=== PATIENT | male | born 1950 | race Caucasian/White ===

== ENCOUNTER 2024-11-27 05:14 | Inpatient (IN) | payer OTHER, SELFPAY ==
[2024-11-27] VITALS (50 sets, daily range): BP systolic 78–135; BP diastolic 49–102; BMI 23.2; BMI 23.0
[2024-11-27 02:46] LABS: Hematocrit 29.6 % (39.0-52.0); Hemoglobin 9.6 g/dL (13.0-18.0); Mean Corp Hgb Conc. 32.4 g/dL (33.0-37.0); Mean Corpuscular Volume 83.1 fL (80.0-94.0); Nucleated Red Blood Cells % 0 % (-); Platelet Count 448 10^3/uL (130-400); Red Cell Dist. Width 14.6 % (11.5-14.5)
[2024-11-27] MEDS: PROTONIX 100 IV ×2 (02:51→13:55)
[2024-11-27] MEDS: PROTONIX IV 80 MG IV (02:52)
[2024-11-27] MEDS: NSS 500 IV (02:52)
--- NOTE | 2024-11-27 02:55 | ED.GENMED ---
History of Present Illness
General
Chief Complaint: Abdominal Symptoms
Source: patient and ambulance crew
Exam Limitations: none
Time Seen by Provider: 11/27/24 01:54
Nursing documentation reviewed up to this point in time: agreed with
History of Present Illness
History of Present Illness:
Patient presents to ED secondary to 1 week history of intermittent abdominal cramping sensation, associated with persistent nausea, vomiting, and diarrhea over the past 24 hours. Upon arrival in ED, patient is found to be covered with bloody stool
content. Denies fever or chills. Denies trauma. Denies recent change in medications or diet. Denies recent travel. Denies sick contact. Patient lives at home alone, and states that he has not seen any physician for some time due to financial
concerns. Patient has been taking Pepto-Bismol for cramping sensation with minimal relief of symptoms. Secondary to his aforementioned symptoms, patient has not been able to eat anything for the past 48 hours. Patient reports feeling weak and
tired.
Review of Systems
Review of Systems
Allergies reviewed?: Yes
All Other Systems: ROS reviewed and negative except as documented in HPI and ROS
Constitutional: Reports no symptoms; Denies fever
Respiratory: Reports no symptoms
Cardiac: Reports no symptoms
ABD/GI: Reports abdominal pain, nausea, vomiting and diarrhea
Musculoskeletal: Reports no symptoms
Skin: Reports no symptoms
Neurological: Reports weakness; Denies dizzy or headache
Phy Exam
Physical Exam
Physical Exam:
Physical Exam
General: mild distress, acutely ill. afebrile. tachycardic
Head: nc/at. eomi
Neck: supple. no meningeal signs.
Heart: tachycardic. no murmur
Lungs: no acute respiratory distress. clear bilaterally
Abdomen: normal bowel sounds. mild diffuse tenderness to palpation. bloody stool, grossly heme positive
Neuro: alert and oriented x 3. no focal neurological deficits
Skin: no rash
Psychiatric: well kept. interactive and cooperative
Extremities: no edema. no calf tenderness.
Course
Orders/Labs/Results
Orders:
Orders
11/27/24 02:33
Type+Screen Urgent
Complete Blood Count/With Diff Urgent
Comprehensive Metabolic Panel Urgent
Lipase Urgent
11/27/24 02:46
0.9% Sodium Chloride 500 ml [Nss] 500 ml IV BOLUS
Pantoprazole 80 mg/100 ml Nss [Protonix] 80 mg in 100 ml IV NOW
Pantoprazole [Protonix IV] 80 mg IV NOW STA
11/27/24 02:53
ABO2 Urgent
BBK Wristband Number:
Associate notified that ABO2 has been ordered: [id number]
Date: 11/27/24
Time: 02:45
Furnace Erector ID: [id number]
11/27/24 03:09
CT Abd/pel Without Iv Or Oral Urgent
Comment:
Reason For Exam: abd pain w diarrhea
11/27/24 03:46
Electrocardiogram (*1) Urgent
Reason for Study: QTc Monitoring
EKG- Treatment ONCE
Ondansetron Injectable [Zofran] 4 mg IV NOW STA
11/27/24 04:33
IV Insert/Care/Rem.- Treatment PRN
11/27/24 04:36
PTT Urgent
Prothrombin Time Urgent
11/27/24 04:59
Admit/Transfer Patient As Directed
Co-Sign Provider:
Level of Care: Inpatient admission
Assign to:: ICU
Physician / Group: Alex
Diagnosis: GI Bleed, NEETA, Metabolic Acidosis
Reason for Hospitalization: GI Bleed, NEETA, Metabolic Acidosis
Expected length of stay greater than two midnights?: Yes
ELOS- Estimated Length of Stay in days: 4
I certify the patient meets the requirements for IP care: Yes
PRN Pain Medication Management As Directed
May give lesser potent ordered pain med per pt: Yes
preference::
Protocol:: Medication orders for pain may be administered in a
manner that supports deferring to patient preference
when the pt is:
- Requesting an ordered lesser potent pain medication.
Least to most potent pain medications are defined
as: acetaminophen < NSAID < tramadol < opioids
(morphine, oxycodone, hydromorphone).
- Requesting a lesser dose of the same medication IF
ORDERED.
- Requesting a less intrusive route of administration
if both routes are prescribed by the provider (PO <
IV).
11/27/24 05:00
Code Status As Directed
Resuscitation Status: Full Code
11/27/24 05:29
B-Hydroxybutyrate Urgent
Lactic Acid Urgent
11/27/24 Breakfast
NPO
Allow oral meds: Yes
Allow clear liquids: Sips of Clears
11/27/24 06:40
Sterile Water For Inj [Sterile Water For Injection 1000 ml] 1,000 ml Sodium Bicarbonate 150 meq IV 150 mls/hr
11/27/24 06:40
Blood Bank Products [* Blood Bank Products] Urgent
Dr's Orders: Transfuse 1 unit PRBCs now
Blood Bank Products: *Packed RBC Leuko(PRBC's)
Quantity: 1
Transfuse Today: Yes
Reason: Bleeding
Consult Notification Routine
Specialty to Notify: Diazo Technician
Date consulting provider notified: 11/27/24
Time consulting provider notified: 08:54
Notified:: Provider
GASTROINTESTINAL CONSULT Routine
Consulting Provider: Stuart Matias
Was physician already notified: Yes
Reason for consult: GI Bleed
Diazo Technician Consult Routine
Consulting Provider: Alex Hoyt
Was physician already notified: No
Reason for consult: GI Bleed
Activity As Directed
Activity Level: Bedrest
Bladder Scan As Directed
Follow Bladder Retention/Intermittent Cath Algorithm?: Yes
PRN if no void in __ hours: 6
Frequency: Per Retention Algorithm
If Bladder Scan Result >: 400
then:: Straight cath
EKG with chest pain [ECG as needed] As Directed
ECG as needed for:: Chest Pain
I/O [Intake/ Output] As Directed
Frequency: Per unit guidelines
Pneumatic Compression Sleeves As Directed
Type: Knee high
Precautions As Directed
Type of Precautions: Aspiration
Straight Cath As Directed
Frequency: Per Retention Algorithm
Additional Instructions: straight cath as needed per acute urinary retention algorithm for 24 hrs
Additional Instructions: for bladder scan greater than 400 mL
Vital Signs As Directed
Frequency: Per unit guidelines
Weight As Directed
Frequency: Daily
Oxygen Therapy [O2 Therapy] [RESP] Routine
Titrate/Wean O2 to maintain O2 sat greater than (%): 94
DX Deep Vein Thrombosis Video Routine
11/27/24 11:37
TSH Reflex To Free T4 Routine
11/27/24 12:00
Pantoprazole 80 mg/100 ml Nss [Protonix] 80 mg in 100 ml IV Q10H
11/27/24 19:34
HH [H&H] Q6H
11/28/24 06:00
Basic Metabolic Panel IN AM
Complete Blood Count/No Diff IN AM
Magnesium IN AM
Phosphorus IN AM
Abnormal Lab Results
11/27/24 11/27/24
02:33 04:36
WBC 20.0 H 10^3/uL
(4.8-10.8)
RBC 3.56 L 10^6/uL
(4.70-6.10)
Hgb 9.6 L g/dL
(13.0-18.0)
Hct 29.6 L %
(39.0-52.0)
MCHC 32.4 L g/dL
(33.0-37.0)
RDW 14.6 H %
(11.5-14.5)
Plt Count 448 H 10^3/uL
(130-400)
Abs Immat Gran (auto) 0.1 H 10^3/uL
(0-0.05)
Absolute Neuts (auto) 16.6 H 10^3/uL
(1.4-6.5)
Absolute Monos (auto) 0.9 H 10^3/uL
(0.1-0.6)
Immature Gran % 0.7 H %
(0-0.5)
Neutrophils % 83.0 H %
(42.2-75.2)
Lymphocytes % 11.7 L %
(20.5-51.1)
PT 15.4 H Sec
(11.4-14.6)
Potassium 5.2 H mmol/L
(3.5-5.1)
Carbon Dioxide 11 L* mmol/L
(22-30)
BUN 66 H mg/dl
(9-20)
Creatinine 1.8 H mg/dL
(0.7-1.3)
Glucose 253 H mg/dl
(70-99)
Crossmatch IS Only See Detail
11/27/24 02:33
11/27/24 02:33
Vital Signs
Initial and Last Documented VS:
Initial Vital Signs
Pulse Resp
116 29
11/27/24 02:25 11/27/24 02:25
Last Documented Vital Signs
Temp Pulse Resp BP Pulse Ox
98.8 F 108 11 92/56 94
11/27/24 19:20 11/27/24 18:30 11/27/24 18:30 11/27/24 18:24 11/27/24 19:45
MDM/Problems Addressed
MDM/Problems Addressed:
History and exam consistent with GI bleed. In light of acute renal failure, unable to obtain CT angiogram. CT abdomen pelvis without contrast ordered, secondary to diffuse abdominal comfort, to evaluate for potential etiology, i.e. colitis.
Discussed with on-call GI physician, Dr. Matias, via text. Does not recommend octreotide infusion at this time. However, does recommend obtaining bleeding scan, if possible. Patient started on Protonix infusion at this time.
While obtaining CT scan, patient with an episode of coffee-ground emesis, up to small amount. Patient given Zofran upon return to ED without any further vomiting episodes. Although mildly tachycardic, blood pressure remained stable, with normal
mentation.
Blood transfusion consent on the chart.
Critical care statement: A total of 40 minutes of critical care time was provided for this patient. This includes management of unstable vital signs, evaluation of the patient at bedside, reviewing the patient's pertinent medical records, discussion
with consultants, review of old EKGs and review of pertinent medical records. This time with separate from time utilized to perform the aforementioned documented procedures
*Pulse Oximetry
SaO2: 98
Oxygen Mode of Delivery: Room air
Patient hypoxic: no
*EKG
Interpreted by ED Provider?: Yes
EKG Intrepretation Date: 11/27/24
Heart Rate: 117
Rate: tachycardiac
Rhythm: sinus and PVC's
Commercial Point: normal axis
Interval: normal interval
*Critical Care Note
Total Time (30-74mins, 75-104mins- exclusive of procedures): Not Applicable
ED Attending Note
-
Portions of this chart may have been created with voice recognition software.� Occasional wrong word or��sound alike� substitutions may have occurred due to the inherent limitations of voice recognition software.
Discharge Plan
Departure
Patient Disposition: Admit
Date of Disposition: 11/27/24
Time of Disposition: 04:27
Presentation/result/management discussed w/ accepting MD/DO: Hospitalist
Discharge Problem:
GI bleed
Interventions
Interventions:
*Risk Screen - Suicide Last Done: 11/27/24 06:50
*General Assessment Last Done: 11/27/24 01:59
*Neglect/Abuse Screening Last Done: 11/27/24 01:59
*ED- Fall Risk Assessment Last Done: 11/27/24 01:59
*ED COVID-19 Vaccine History Last Done: 11/27/24 06:50
*Nursing Disposition Last Done: 11/27/24 06:37
VZ-Wttvnv-Etcdjksloq Assessment Last Done: 11/27/24 04:29
Discharge Date and Time
Discharge Date/Time: 11/27/24 06:37
[2024-11-27 03:07] LABS: AST (SGOT) 28 U/L (17-59); Albumin 3.8 g/dl (3.5-5.0); Alkaline Phosphatase 51 U/L (38-126); Blood Urea Nitrogen 66 mg/dl (9-20); Calcium 9.9 mg/dl (8.4-10.2); Carbon Dioxide 11 mmol/L (22-30); Chloride 107 mmol/L (98-107); Glucose 253 mg/dl (70-99); Lipase 93 U/L (23-300); Potassium 5.2 mmol/L (3.5-5.1); Sodium 139 mmol/L (135-145); Total Protein 6.5 g/dl (6.3-8.2); eGFR 38.53
[2024-11-27 03:12] LABS: ALT (SGPT) < 30 U/L (0-50)
[2024-11-27] MEDS: ZOFRAN 4 MG IV (04:11)
[2024-11-27 04:59] LABS: INR 1.16; PT 15.4 Sec (11.4-14.6)
[2024-11-27 05:00] LABS: APTT 23.5 Sec (23.4-35.0)
--- NOTE | 2024-11-27 05:04 | HPS.HSE ---
Family Physician
-
Family Physician: * NONE
Chief Complaint
-
N/V/D
History of Present Illness
Patient is a 74y M with PMH significant for GERD / PUD who presents to ED complaining of crampy abdominal pain with N/V/D. Patient states that he has been having crampy abdominal pain of-and-on for several days. He initially attributed this to
the heat and humidity. He was taking medications at home including Pepto Bismol, Imodium, Tylenol and Aleve in an attempt to improve his symptoms. On Friday, patient had campy abdominal pain followed by N/V. He had multiple episodes of emesis
throughout the day - typically triggered by sips of water. He notes that each episode of emesis was typically followed by a large, pudding-consistency bowel movement. His symptoms increased in frequency and severity and he presented to the ED for
further evaluation. He has had multiple additional episodes of coffee-ground emesis and grossly bloody stools since arrival in the ED.
Patient states that he has had previous episodes of 'bleeding ulcers' in the past - usually associated with excess Excedrin use.
He has avoided Excedrin since and now take Tylenol mostly for pain. He does report occasional doses of Aleve if the Tylenol does not work - but not regularly.
He denies smoking or alcohol use.
He does not see a physician regularly and takes no daily prescriptions meds.
Medical History
Past Medical History
Past Medical History: Reports Other
Additional Past Medical History:
GERD / PUD
Past Surgical History: Reports Other
Additional Past Surgical History:
Right Hip ORIF
Social History
Tobacco: Non-smoker
Alcohol: None
Drug: None
Living: Alone
Family History
Family History: Not pertinent
Allergies / Home Medications
Allergies reflects when Allergies were last updated in [facility].
Home Medications with original date entered in [facility]
Allergy/Medication List:
Allergies
Allergy/AdvReac Type Severity Reaction Status Date / Time
No Known Allergies Allergy Unverified 11/27/24 01:58
Home Medications
No Meds [No Current Medications] 11/27/24
Review of Systems
-
History Source: Patient
A 12 point ROS was completed and negative except as noted: Yes
Constitutional: Reports Fatigue; Denies Fever or Chills
EENT: Denies Sore Throat
Respiratory: Denies Cough or Trouble Breathing
Cardiac: Reports Diaphoresis; Denies Chest Pain or Palpitations
Abdomen/GI: Reports Abdominal Pain, Nausea, Vomiting, Diarrhea, Bloody Stools and Anorexia
: Denies Dysuria or Frequency
Musculoskeletal: Denies Joint Pain or Edema
Psych: Denies Depression or Anxiety
Physical Exam
Vital Signs
Vital Signs
Temp Pulse Resp BP Pulse Ox
98.3 F 111 25 105/79 97
11/27/24 02:29 11/27/24 04:45 11/27/24 04:45 11/27/24 04:13 11/27/24 04:45
Physical Exam
General: Other (74y M pale-appearing and in moderate distress due to nausea.)
HEENT: Other (Dry MM. Coffee-ground appearing emesis in and around the mouth.)
Respiratory: Clear; No Wheezes, Rales or Rhonchi
Cardiac: S1/S2 and Regular Rhythm; No Murmur
GI: Soft, Non Tender, Non Distended and Normal Bowel Sounds
Rectal: Other (Grossly heme positive stool )
Musculoskeletal: No Clubbing, No Cyanosis and No Edema
Neuro: AO x 3
Laboratory Results
-
11/27/24 02:33
11/27/24 02:33
Laboratory Results
PT 15.4 Sec (11.4-14.6) H 11/27/24 04:36
INR 1.16 11/27/24 04:36
APTT 23.5 Sec (23.4-35.0) 11/27/24 04:36
Total Bilirubin 0.6 mg/dl (0.2-1.3) 11/27/24 02:33
AST 28 U/L (17-59) 11/27/24 02:33
ALT < 30 U/L (0-50) 11/27/24 02:33
Alkaline Phosphatase 51 U/L (38-126) 11/27/24 02:33
Lipase 93 U/L (23-300) 11/27/24 02:33
Impression/Plan
-
A/P: Patient is a 74y M with PMH significant for PUD / GERD who presents to ED complaining of crampy abdominal pain and N/V/D.
GI Bleeding
- Admit to ICU for further evaluation and treatment.
- ? source of bleeding - lower v brisk upper v other.
- Tachycardic but with stable BP thus far.
- Hgb 9.6 but likely falsely elevated in setting of hypovolemia.
- Given ongoing bleeding will give 1 unit of PRBCs now.
- Follow H&H and provide additional transfusions if needed.
- GI consulted for probable endoscopic evaluation.
- Unable to obtain CTA due to renal impairment (see below).
- Follow for further episodes of emesis / hematochezia.
NEETA v CKD
- SCr = 1.8 with no prior value for comparison.
- Suspect NEETA given bleeding / probable hypovolemia.
- IVFs / blood product support and follow for changes in renal function over the next 48-72 hours.
- BUN elevation likely combination of prerenal azotemia and GI bleeding.
Anion Gap Metabolic Acidosis
- HCO3 = 11 with anion gap of 21 on initial labs.
- ? lactic acidosis / hypoperfusion due to anemia / blood loss.
- ? intestinal ischemia resulting in crampy pain / GI bleeding.
- Check lactate, B-OH, etc.
- IVFs / blood product support as noted above.
- Supplemental bicarb, at least initially.
- Non-contrast CT done in the ED without overt evidence of bowel abnormality.
- No abdominal tenderness, guarding, etc on exam.
Leukocytosis
Thrombocytosis
- Elevations in WBC and platelets likely stress response due to ongoing bleeding, etc.
- Afebrile and no evidence of active infection.
- Follow for changes with blood products / volume replacement.
DVT Prophylaxis: SCDs
Code Status: Full
[2024-11-27 05:36] LABS: Venous Blood Gas B.E. -9.1 mmol/L (-4 to +4); Venous Blood Gas O2 Sat % 70.8 %
--- NOTE | 2024-11-27 06:41 | CON.GI ---
Consultation
-
Date/Time Consultation Requested: 11/27/24, 06:40
Date/Time Consultation Performed: 11/27/24, 06:41
Requesting Provider: Issa Johnson DO
Performing Provider: Stuart Matias DO
Reason for Consultation: GI Bleed
Medical History
Chief Complaint / HPI
Chief Complaint: Nausea/vomiting/diarrhea
History of Present Illness:
Mr. Yancey is a 74 y.o male with a past medical history of GERD and history of PUD who presented to the ED with abdominal pain and nausea/vomiting and diarrhea. Concern for coffee-ground emesis and bloody stools in ED concerning for which GI has
been consulted for further evaluation and management.
Patient is somewhat a limited historian this AM, but notes ongoing crampy, diffuse abdominal pain that has been intermittent over the past several days. Initially attributed his symptoms due to dehydration from the heat/humidity. Tried taking
multiple OTC medications including Pepto-Bismol, Imodium, Tylenol and Aleve to relieve symptoms. On Friday, had worsening abdominal pain along with multiple episodes of nausea/vomiting. Denies any coffee ground emesis or hematemesis. Denies any
bloody bowel movements, although had looser brown stools. Denies any dysphagia or odynophagia or worsening reflux symptoms. Denies any unintentional weight loss. He does note previous bleeding ulcers in the past approximately 20 years ago which were
found during a prior EGD. Unable to locate/review prior endoscopy records. He reportedly has never had a prior colonoscopy in the past. Otherwise, he denies any other antiplatelets or anticoagulants. Does note intermittent NSAIDs with Aleve in the
past but denies any significant NSAID use. In the ED, he had grossly bright red bloody stools as well as coffee ground emesis.
In the ED, patient was tachycardic and hypotensive. Labs notable for K 5.2, BUN 66, Lead Cargoman 1.8 and lactic acid 6.8 and normal LFTs. CBC with Hgb 9.6, WBC 20k, and plts 448. INR 1.16. CT Abd/pelvis imaging w/out IV contrast was grossly unremarkable
without any evidence of bowel abnormality as CTA unable to be performed due to NEETA. Started on IV PPI and given 1 uPRBC and admitted to ICU for further management.
Past Medical History
Past Medical History: Other (GERD/PUD)
Past Surgical History: Other (Right Hip ORIF)
Social History
Tobacco: Non-Smoker
Alcohol: None
Drug: None
Allergies / Home Medications
Allergy/AdvReac Type Severity Reaction Status Date / Time
No Known Allergies Allergy Unverified 11/27/24 01:58
�Medication �Instructions �Recorded
No Meds [No Current Medications] 11/27/24
Review of Systems
-
All other systems: A 12 pt ROS was Negative except as stated above in HPI
Vital Signs
Temp Pulse Resp BP Pulse Ox
98.3 F 117 28 87/70 98
11/27/24 02:29 11/27/24 06:32 11/27/24 06:15 11/27/24 06:22 11/27/24 06:22
Physical Exam
Exam
General: Comfortable and Other (Pale appearing)
HEENT: Anicteric and Moist Mucous Membranes
Respiratory: Other (Normal WOB on room air)
Cardiac: Other (Tachycardic on tele)
GI: Soft, Non Tender and Non Distended
Skin: Warm
Neuro: AO x 3
Psych: Calm
Results
WBC 20.0 10^3/uL (4.8-10.8) H 11/27/24 02:33
Hgb 9.6 g/dL (13.0-18.0) L 11/27/24 02:33
Hct 29.6 % (39.0-52.0) L 11/27/24 02:33
MCV 83.1 fL (80.0-94.0) 11/27/24 02:33
Plt Count 448 10^3/uL (130-400) H 11/27/24 02:33
Absolute Neuts (auto) 16.6 10^3/uL (1.4-6.5) H 11/27/24 02:33
PT 15.4 Sec (11.4-14.6) H 11/27/24 04:36
INR 1.16 11/27/24 04:36
APTT 23.5 Sec (23.4-35.0) 11/27/24 04:36
Sodium 139 mmol/L (135-145) 11/27/24 02:33
Potassium 5.2 mmol/L (3.5-5.1) H 11/27/24 02:33
Chloride 107 mmol/L (98-107) 11/27/24 02:33
Carbon Dioxide 11 mmol/L (22-30) L* 11/27/24 02:33
BUN 66 mg/dl (9-20) H 11/27/24 02:33
Creatinine 1.8 mg/dL (0.7-1.3) H 11/27/24 02:33
Calcium 9.9 mg/dl (8.4-10.2) 11/27/24 02:33
Total Bilirubin 0.6 mg/dl (0.2-1.3) 11/27/24 02:33
AST 28 U/L (17-59) 11/27/24 02:33
ALT < 30 U/L (0-50) 11/27/24 02:33
Alkaline Phosphatase 51 U/L (38-126) 11/27/24 02:33
Lipase 93 U/L (23-300) 11/27/24 02:33
Diagnostic Image Results: CT Abd/pelvis imaging 11/27/24 unremarkable for any bowel abnormality, pending finalized impression
Prior GI Procedures: No prior endoscopy records available for review
Assessment / Plan
-
Mr. Yancey is a 74 y.o male with a past medical history of GERD and history of PUD who presented to the ED with abdominal pain and nausea/vomiting and diarrhea. Concern for coffee-ground emesis and bloody stools in ED concerning for which GI has
been consulted for further evaluation and management.
#Coffee Ground Emesis
#Nausea/Vomiting #Abdominal Pain
#Hematochezia
#C/f GI Bleed
#Hx of PUD
#Elevated Lactic Acid
Impression: Patient presenting with worsening abdominal pain and nausea/vomiting over the past several days presenting to the ED with bloody stools and coffee ground emesis. Prior history of PUD and previous taking intermittent NSAIDs concerning for
UGIB given his presentation versus LGIB in setting of possible ischemic colitis given his symptomatology with abdominal pain and bloody stools along with his elevated lactic acid. BUN:Lead Cargoman ratio also elevated further concerning for UGIB and also
component of hypovolemia as well contributing and intermittent NSAIDs along with a prior history of PUD in the past. Prior EGD 20 years ago with ulcers, has never had a prior colonoscopy in the past. No further bloody stools or melena since his
admission. No other anticoagulants or antiplatelets. CT Abd/pelvis imaging grossly unremarkable as unable to perform CTA due to his NEETA. Would still benefit from an urgent EGD to further evaluate potential concern for a brisk UGIB. Currently remains
HD-stable in ICU pending additional 1 uPRBC and fluid resuscitation.
Recommendations:
- Keep strict NPO, continue IVF to maintain euvolemia with IV Lactated Ringers
- Ensure two large bore IVs
- F/u post-transfusion CBC as suspect previous Hgb 9.6 likely hemoconcentrated
- Repeat AM labs after IVF and trend lactic acid, previously 6.8 and AGMA still concerning for potential ischemic colitis
- Transfuse for goal Hgb > 8.0 prior to endoscopy
- IV PPI gtt x 72 hrs
- Will plan for urgent diagnostic EGD later today on 11/27/24 for further evaluation
- Reviewed benefits and risks this AM including worsening bleeding, infection, perforation and/or other unforeseen complications related to the procedure/anesthesia
- If EGD is unrevealing, would consider pursuing CT imaging if kidney function allows given concern for ischemia
- Hold all antihypertensive, anticoagulants
- Agree with ongoing supportive care as per ICU
Discussed with primary internal medicine team this AM. GI will continue to follow
Data Reviewed
-
Radiology: Report Reviewed by me
CT Scan: Report Reviewed by me
-
-
Thank you for consultation and allowing me to participate in the patient's care. Please call the production tester GI physician during the after hours with any questions or concerns.
[2024-11-27 06:53] LABS: Glucose - Point of Care 184 mg/dl (70-99)
--- NOTE | 2024-11-27 07:00 | PTCARENOTE ---
received pt from ED, Ox3 restless, c/o 3/10 abdominal pain, no complaints of nausea, sinus tach on the monitor, weak pulses, lungs diminished, 2L NC SpO2 95%, BSx4 hyperactive, tender to the touch, pt has urinal and due to void, MASB within gluteal
folds, stage 1 on right hip, peripheral IV per worklist, Protonix gtt, LR bolus and bicarb gtt per MAR, pt afebrile 98.3, pt will need consent signed to receive blood, GI doctor updated pt @ the bedside with potential plan of care.
[2024-11-27] MEDS: SODIUM BICARBONATE 1150 MEQ IV (07:22)
--- NOTE | 2024-11-27 08:00 | W.PN.HOSP.TC ---
Today's Communication/Plan
-
see A/P
Assessment / Plan
Assessment / Plan
HPI: 74 yo M with PMH significant for GERD / PUD who presented to ED complaining of crampy abdominal pain with N/V/D. Patient states that he has been having crampy abdominal pain off-and-on for several days. He initially attributed this to the
heat and humidity. He was taking medications at home including Pepto Bismol, Imodium, Tylenol and Aleve in an attempt to improve his symptoms. On Friday, patient had campy abdominal pain followed by N/V. He had multiple episodes of emesis
throughout the day - typically triggered by sips of water. He notes that each episode of emesis was typically followed by a large, pudding-consistency bowel movement. His symptoms increased in frequency and severity and he presented to the ED for
further evaluation. He has had multiple additional episodes of coffee-ground emesis and grossly bloody stools since arrival in the ED.
Patient states that he has had previous episodes of 'bleeding ulcers' in the past - usually associated with excess Excedrin use.
He has avoided Excedrin since and now take Tylenol mostly for pain. He does report occasional doses of Aleve if the Tylenol does not work - but not regularly.
He denies smoking or alcohol use.
He does not see a physician regularly and takes no daily prescriptions meds.
A/P:
# SIRS (tachycardia/increased RR/hypotension) 2/2 GI Bleeding, unclear source currently - lower v brisk upper v ischemic colitis v others
Monitor HR/Tachycardia, somewhat stable BP thus far.
Hgb 9.6 on admission, monitor H/H closely
Given ongoing bleeding, transfused 1 unit PRBCs
Cont Protonix drip
GI consulted, plan for endoscopic evaluation.
Unable to obtain CTA due to renal impairment (see below).
Non-contrast CT done in the ED without overt evidence of bowel abnormality. Follow formal report
Follow for further episodes of emesis / hematochezia.
# NEETA v CKD
SCr 1.8 on admission with no prior value for comparison.
Suspect NEETA given bleeding / probable hypovolemia.
IVFs and blood product support and follow for changes in renal function
BUN elevation likely combination of prerenal azotemia and GI bleeding.
# Anion Gap Metabolic Acidosis
# Lactic acidosis
HCO3 11 with anion gap of 21 on initial labs.
noted high lactate level at 6.8, follow repeat level
B-OH only mildly elevated
? intestinal ischemia resulting in crampy pain / GI bleeding.
Cont bicarb drip
Non-contrast CT done in the ED without overt evidence of bowel abnormality. Follow formal report
Pt c/o mild abdominal tenderness, but on exam, soft and no guarding
# Leukocytosis
# Thrombocytosis
Elevations in WBC and platelets likely stress response due to ongoing bleeding, etc.
Afebrile and no evidence of active infection.
Follow for changes with blood products / volume replacement.
DVT Prophylaxis: SCDs
Code Status: Full
DW GI
CC Mx of acute GIB / AGMA
Total time spent 41
Anticipated Discharge: > 48 hours
Subjective/Interval History
-
Date of Service: November 27, 2024
Objective Data
-
Labs:
Laboratory Results
11/27/24 11/27/24 11/27/24
02:33 04:36 06:40
WBC 20.0 H
Hgb 9.6 L Pending
Hct 29.6 L Pending
Plt Count 448 H
PT 15.4 H
INR 1.16
APTT 23.5
Sodium 139
Potassium 5.2 H
Chloride 107
Carbon Dioxide 11 L*
BUN 66 H
Creatinine 1.8 H
Glucose 253 H
Calcium 9.9
Total Bilirubin 0.6
AST 28
ALT < 30
Alkaline Phosphatase 51
11/27/24 11/27/24
12:40 18:40
WBC
Hgb Pending Pending
Hct Pending Pending
Plt Count
PT
INR
APTT
Sodium
Potassium
Chloride
Carbon Dioxide
BUN
Creatinine
Glucose
Calcium
Total Bilirubin
AST
ALT
Alkaline Phosphatase
Vital Signs:
Vital Signs
Temp Pulse Resp BP Pulse Ox
36.8 C 113 32 107/67 98
11/27/24 07:00 11/27/24 06:45 11/27/24 06:45 11/27/24 06:45 11/27/24 06:22
Review of Systems
-
History Source: Patient
Abdomen/GI: Reports Abdominal Pain, Nausea, Vomiting and Bloody Stools
Physical Exam
-
General: Well Developed, Well Nourished, Comfortable, Conversant and Appears Chronically Ill
HEENT: Normocephalic, Atraumatic, Nose Appears Normal and Ears Appear Normal
Respiratory: Clear to Auscultation and Non Labored Respirations; Negative Accessory Resp Muscle Use
Cardiac: Regular Rhythm and S1/S2
GI: Soft, Nontender, Nondistended and Other (decreased bowel sound )
Skin: Warm and Dry
Neuro: Awake and Alert
Psych: Calm and Intact Judgement/Insight (somewhat)
Data Reviewed
-
Labs: Labs Reviewed by me
--- NOTE | 2024-11-27 08:14 | CON.INTV ---
Consultation
Consultation Request
Date/Time Consultation Requested: 11/27/2024639
Date/Time Consultation Performed: 11/27/2024811
Requesting Provider: Dr. Johnson
Performing Provider: Dr. Hoyt
Reason for Consultation: Acute GI bleed
Medical History
-
Chief Complaint: Fevers
History of Present Illness:
74-year-old male with a past medical history of GERD + PUD who presents with generalized weakness and episode of passing out. Per EMS, he was complaining of nausea/vomiting and diarrhea and he was covered in feces initially. He says that he has
been having abdominal discomfort that has been feeling crampy. He has been going on and off for several days. He thought that it was due to the heat and humidity outside. He has been taking Pepto-Bismol, Imodium, Tylenol and Aleve to help his
symptoms. Chest 1 day prior to arrival, he had been nauseous and vomiting throughout the day, being triggered even by small sips of water. After each emesis episode, he had a pudding consistency large bowel movement. His symptoms increasingly
worsened, so he came to the ER. While in the ER, he had coffee-ground emesis + grossly bloody stools. Patient states he has had previous episodes of bleeding ulcers in the past associated with excessive Excedrin use. He reports that he mainly
uses Tylenol for pain, with occasional use of Aleve if the Tylenol does not work, but no regular NSAID use. He does not see a physician regularly, and takes no home medications. Initially in the ER he was afebrile to 98.3 �F, tachycardic to 116,
respiratory rate 29, BP 91/65, and saturating 99% on room air. Initial labs showed leukocytosis to 20, Hb 9.6, platelet count 448, serum bicarbonate level 11, potassium level 5.2, creatinine 1.8, glucose 253, lactate 6.8, normal LFTs, normal lipase
and slightly elevated beta-hydroxybutyrate at 0.29. CT abdomen/pelvis was obtained showing no evidence for bowel obstruction, with pneumatosis involving the wall of the cecum without evidence of portal vein air. Also a direct right inguinal hernia
which contains a loop of small bowel. Patient given a 500 cc bolus of NS 0.9%, Zofran, and started on PPI drip and admitted to the ICU for further care with [facility] services consulted for further recommendations/management.
When I saw the patient this morning, he was resting in bed in no acute distress. Heart rate 117, BP 113/72 and saturating 95% on room air. He currently denies abdominal pain or nausea. Whenever his abdomen is palpated, he feels pain around his
middle portion of his abdomen and this causes him to have a bowel movement. He says he had fevers prior to arrival with no recent antibiotics, no cough, no recent sick contacts, no pain during urination or discharge from his penis. He currently
denies chest pain, SOB, FAUST, abdominal pain at rest, fevers or chills. He has remained afebrile since admission.
PMHx: GERD, PUD, prediabetes
PSHx: Right hip ORIF, ?history of pneumothorax surgery
Past Medical History
Past Medical History: Other (Above as per HPI)
Past Surgical History: Other (Above as per HPI)
Social History
Tobacco: Non-smoker
Alcohol: None
Drug: None
Living: Alone
Family History
Family History: Reviewed & Not Pertinent
Allergies / Home Medications
Allergies
Allergy/AdvReac Type Severity Reaction Status Date / Time
No Known Allergies Allergy Unverified 11/27/24 01:58
Home Medications
�Medication �Instructions �Recorded �Confirmed �Last Taken �Type
No Meds [No Current Medications] 11/27/24 11/27/24 Unknown History
Review of Systems
-
History Source: Patient
All other systems: Negative unless noted
Vitals / Labs / Diagnostic Testing
Vital Signs
Temp Pulse Resp BP Pulse Ox
98.3 F 113 32 107/67 98
11/27/24 07:00 11/27/24 06:45 11/27/24 06:45 11/27/24 06:45 11/27/24 06:22
Laboratory Results
11/27/24
04:36
PT 15.4 H
INR 1.16
APTT 23.5
Diagnostic Testing:
Physical Exam
-
HEENT: Normocephalic, Anicteric and Other (Conjunctival pallor)
Cardiovascular: S1/S2 and Peripheral Edema (negative)
Respiratory: Clear, Wheeze (negative), Rales (negative), Rhonchi (negative) and Accessory Resp Muscle Use (negative)
GI: Soft, Non Distended, Tender (Periumbilical region, and after palpation is performed it leads to him having a bowel movement) and Normal Bowel Sounds
Neurology: Tremors (negative) and Other (Sleepy, although easily arousable to voice and tactile stimulation, and answers questions appropriately)
Skin: Warm and Dry
General: Respiratory Distress (negative), Comfortable, Fever (negative), Chills (negative) and Other (Elderly man, appears deconditioned/weak, in NAD)
Assessment
-
Assessment: 74-year-old male with a past medical history of GERD + PUD who presents with generalized weakness and episode of passing out. Per EMS, he was complaining of nausea/vomiting and diarrhea and he was covered in feces initially. He says
that he has been having abdominal discomfort that has been feeling crampy. He has been going on and off for several days. He thought that it was due to the heat and humidity outside. He has been taking Pepto-Bismol, Imodium, Tylenol and Aleve to
help his symptoms. Chest 1 day prior to arrival, he had been nauseous and vomiting throughout the day, being triggered even by small sips of water. After each emesis episode, he had a pudding consistency large bowel movement. His symptoms
increasingly worsened, so he came to the ER. While in the ER, he had coffee-ground emesis + grossly bloody stools. Patient states he has had previous episodes of bleeding ulcers in the past associated with excessive Excedrin use. He reports that
he mainly uses Tylenol for pain, with occasional use of Aleve if the Tylenol does not work, but no regular NSAID use. He does not see a physician regularly, and takes no home medications. Initially in the ER he was afebrile to 98.3 �F, tachycardic
to 116, respiratory rate 29, BP 91/65, and saturating 99% on room air. Initial labs showed leukocytosis to 20, Hb 9.6, platelet count 448, serum bicarbonate level 11, potassium level 5.2, creatinine 1.8, glucose 253, lactate 6.8, normal LFTs,
normal lipase and slightly elevated beta-hydroxybutyrate at 0.29. CT abdomen/pelvis was obtained showing no evidence for bowel obstruction, with pneumatosis involving the wall of the cecum without evidence of portal vein air. Also a direct right
inguinal hernia which contains a loop of small bowel. Patient given a 500 cc bolus of NS 0.9%, Zofran, and started on PPI drip and admitted to the ICU for further care with [facility] services consulted for further recommendations/management.
Chronic conditions [employer] EXAM[employer]: GERD, PUD, prediabetes
Impression:
#Acute gastrointestinal hemorrhage with suspected UGIB: Differential includes PUD versus AVM versus Dieulafoy lesion
#Acute blood loss anemia due to above
#Hemorrhagic shock due to above with lactate level initially 6.8
#History of GERD + PUD
#Leukocytosis with suspected sepsis
#NEETA
#Elevated beta-hydroxybutyrate likely due to starvation ketosis
#Lactic acidosis
Plan:
- Large-bore IV x 2
- Keep NPO --> defer starting diet to GI
- PPI gtt
- IVF - currently on bicarb gtt - will likely transition off this later today to isotonic crystalloids
- Trend H/H and transfuse if needed to keep Hb>7-8g/dL; keep plt>50k, INR<1.5
- GI consulted --> planning for EGD later this AM
- Patient is being transfused this morning with 1 unit PRBC which is irradiated + leukoreduced
- CT abdomen/pelvis performed overnight showing pneumatosis involving the wall of the cecum, concerning for ischemic bowel, although no evidence of portal vein air nor free intraperitoneal air. Patient is hypotensive, although not on vasopressors.
- Maintain MAP >65 with low threshold to start vasopressors
- Continue trending lactic acid level until <2 mmol/L
- Trend serum bicarbonate level while on bicarb drip, and stop drip once bicarbonate level is >18
- Check VBG as well to asses pH andn pCO2
- Trend sCr and UOP
- Renally dose all meds/Abx
- Patient has elevated WBC count and was found with feces all over himself initially; patient admits to this, saying that he laid in bed and was too weak/sick to get up out of bed so he urinated/defecated on himself in the bed for days
- Need to perform infectious workup with urinalysis + blood cultures, and start empiric antibiotics
- Continue trending WBC count + temperature curve
- Check CXR to evaluate for focal infiltrates
- Maintain SpO2 >90-94%; currently he is on room air, breathing comfortably, saturating 95%
- prn nebulized bronchodilators - not currently bronchospastic
- Incentive spirometer encouraged 10x per hour for at least 4 hrs a day
- Replete electrolytes with K>4, Mg>2
- Maintain euglycemia with goal BG 140-180; check A1C
- DVT ppx: SCDs for now
I called the patient's brother, Carlos, and spoke to him, gave him an update on the clinical status of James. According to Carlos, James does not take care of himself, does not shower and lives like a 'slob.'
Continue ICU level of care for this critically ill patient.
Critical care statement: A total of 38 minutes of critical care time was provided for this patient today. This includes management of unstable vital signs, evaluation of the patient at bedside, reviewing the patient's pertinent medical records
including radiographs, microbiology, laboratory evaluations, and discussion with primary team, consultants, pharmacy, nutrition, physical therapy, case management, charge nurse, critical care nursing, and respiratory therapy.
Data:
CT Abd/Pelvis without contrast 11/27/2024:
Mild elevation of the right hemidiaphragm.
Coronary artery calcifications are present. Please correlate with symptoms of and risk factors for coronary artery disease, with further workup as clinically appropriate.
The cecum is mobile and located in the left lower abdomen and upper pelvis. There is evidence for pneumatosis involving the wall of the cecum. This finding can be seen with ischemia, although can also be seen as a benign finding. Please correlate
clinically. No evidence for portal vein air. There is no free intraperitoneal air.
There is no evidence for bowel obstruction.
Right inguinal hernia containing loops of small bowel. No CT findings to suggest bowel obstruction or strangulation, but please correlate clinically.
Significantly enlarged prostate gland extending into the base of bladder.
Bony degenerative changes.
[2024-11-27 10:50] LABS: Urine Character Clear (Clear)
[2024-11-27 11:07] LABS: Urine Squamous Cell >30 /LPF (Few); Urine White Cell 16-20 /HPF (0-5)
[2024-11-27 12:15] LABS: Hematocrit 26.0 % (39.0-52.0); Hemoglobin 9.2 g/dL (13.0-18.0); Mean Corp Hgb Conc. 35.4 g/dL (33.0-37.0); Mean Corpuscular Volume 78.3 fL (80.0-94.0); Platelet Count 332 10^3/uL (130-400); Red Cell Dist. Width 14.6 % (11.5-14.5)
--- NOTE | 2024-11-27 12:22 | PTCARENOTE ---
Pt received one unit PRBC per order. Pt pale. Sinus tachycardia. Loose dark red stools x 3. Abdomen tender. All other assessments per charting.
[2024-11-27 12:36] LABS: Blood Urea Nitrogen 76 mg/dl (9-20); Calcium 9.3 mg/dl (8.4-10.2); Carbon Dioxide 17 mmol/L (22-30); Chloride 111 mmol/L (98-107); Estimated Creatinine Clearance 34 ml/min; Glucose 143 mg/dl (70-99); Magnesium 2.1 mg/dl (1.6-2.3); Potassium 4.9 mmol/L (3.5-5.1); Sodium 138 mmol/L (135-145); eGFR 32.02
[2024-11-27] MEDS: ZOSYN 50 IV ×2 (13:55→18:36)
--- NOTE | 2024-11-27 16:00 | PTCARENOTE ---
Pt drowsy since received back from GI lab. Second unit of PRBC started per order. Pt's brother updated at bedside. Burgundy stool via rectal trumpet. All other assessments unchanged.
[2024-11-27] MEDS: SODIUM BICARBONATE IV (16:05)
[2024-11-27 19:41] LABS: Venous Blood Gas B.E. -2.6 mmol/L (-4 to +4); Venous Blood Gas O2 Sat % 94.9 %
[2024-11-27 19:44] LABS: Venous Blood Gas O2 Therapy 21%
[2024-11-27 19:57] LABS: Hematocrit 27.5 % (39.0-52.0); Hemoglobin 9.3 g/dL (13.0-18.0)
[2024-11-27 20:16] LABS: ALT (SGPT) 11 U/L (0-50); AST (SGOT) 28 U/L (17-59); Albumin 3.0 g/dl (3.5-5.0); Alkaline Phosphatase 48 U/L (38-126); Blood Urea Nitrogen 79 mg/dl (9-20); Calcium 8.8 mg/dl (8.4-10.2); Carbon Dioxide 22 mmol/L (22-30); Chloride 109 mmol/L (98-107); Estimated Creatinine Clearance 36 ml/min; Glucose 128 mg/dl (70-99); Potassium 4.7 mmol/L (3.5-5.1); Sodium 139 mmol/L (135-145); Total Protein 5.3 g/dl (6.3-8.2); eGFR 33.95
[2024-11-28] VITALS (26 sets, daily range): BP systolic 90–136; BP diastolic 52–79; BMI 23.3
[2024-11-28] MEDS: PROTONIX 100 IV ×2 (00:21→12:10)
[2024-11-28] MEDS: ZOSYN 50 IV ×4 (00:22→18:15)
[2024-11-28 03:56] LABS: Hematocrit 25.1 % (39.0-52.0); Hemoglobin 8.5 g/dL (13.0-18.0); Mean Corp Hgb Conc. 33.9 g/dL (33.0-37.0); Mean Corpuscular Volume 82.8 fL (80.0-94.0); Platelet Count 262 10^3/uL (130-400); Red Cell Dist. Width 14.7 % (11.5-14.5)
[2024-11-28 04:11] LABS: Blood Urea Nitrogen 68 mg/dl (9-20); Calcium 8.7 mg/dl (8.4-10.2); Carbon Dioxide 25 mmol/L (22-30); Chloride 110 mmol/L (98-107); Estimated Creatinine Clearance 38 ml/min; Glucose 125 mg/dl (70-99); Magnesium 2.2 mg/dl (1.6-2.3); Potassium 4.5 mmol/L (3.5-5.1); Sodium 141 mmol/L (135-145); eGFR 36.11
--- NOTE | 2024-11-28 05:32 | PTCARENOTE ---
Pt remains drowsy, but easily arousable, Ox2 confused to time. RA, pulse ox mid 90s. HR 90s-110s. SR-sinus tach w/ occasional PVCs. Pulses palpable. Bowel sounds hyperactive, RT replaced, burgundy stool with clots. Meghna urine, voids in urinal.
Protonix gtt continues. Safe environment maintained, call mace within reach, pt repositioning self.
--- NOTE | 2024-11-28 06:24 | W.PN.GI.CBS2 ---
Today's Communication / Plan
-
No signs to suggest recurrent upper GI bleeding, still expect melena over next 24-48 hrs. Okay for CLD and trend serial Hgb along with IV PPI gtt. Agree with IV abx given c/f ischemic colitis. See rest of care as outlined below.
Assessment / Plan
-
Mr. Yancey is a 74 y.o male with a past medical history of GERD and history of PUD who presented to the ED with abdominal pain and nausea/vomiting and diarrhea. Concern for coffee-ground emesis and bloody stools in ED concerning for which GI has
been consulted for further evaluation and management.
#Coffee Ground Emesis
#Nausea/Vomiting #Abdominal Pain
#Hematochezia 2/2
#Brisk UGIB
#Duodenal Ulcer w/ NBVV (s/p epi/bicap/hemospray 11/27/24)
#Hx of PUD
#Ischemic Colitis
#Elevated Lactic Acid
Impression: Patient presenting with worsening abdominal pain and nausea/vomiting over the past several days presenting to the ED with bloody stools and coffee ground emesis. Prior history of PUD and previous taking intermittent NSAIDs concerning for
UGIB given his presentation versus LGIB in setting of possible ischemic colitis given his symptomatology with abdominal pain and bloody stools along with his elevated lactic acid. BUN:Care Trainer ratio also elevated further concerning for UGIB and also
component of hypovolemia as well contributing and intermittent NSAIDs along with a prior history of PUD in the past. Prior EGD 20 years ago with ulcers, has never had a prior colonoscopy in the past. No further bloody stools or melena since his
admission. No other anticoagulants or antiplatelets. CT Abd/pelvis imaging grossly unremarkable as unable to perform CTA due to his NEETA.
Priro CT Abd/pelvis 11/27/2024- Impression: Pneumatosis involving the wall of the cecum, c/f ischemia without any portal venous air or intraperitoneal air.
- S/p EGD 11/27/24: Found to have a cratered duodenal ulcer within the duodenal bulb with an overlying clot and a NBVV, s/p epi/bicap and hemospray for hemostasis, old blood throughout duodenum, along with LA Grade C esophagitis, otherwise rest of
stomach and exam was normal
- Hgb stable 9.2 -> 9.2 -with slight drift in Hgb to 8.5 and down-trending BUN 79 -> 68. S/p total of 1 uPRBCs since admission. Remains HD stable with HR 90-100s without further episodes of coffee ground emesis or ongoing maroon colored stools.
Recommendations:
- Okay to start CLD today
- Trend serial Hgb with CBC q 8 hrs, transfuse for goal Hgb > 8.0
- Continue IV PPI gtt x 72 hrs
- Agree with continued IV Zosyn given c/f ischemic colitis
- Lactate normalized 6.8 -> 2.0
- Suspect his previous bloody stools secondary to brisk UGIB and may have had oozing given the concern for ischemic colitis
- Would defer any plans for a colonoscopy given the concern for pneumatosis involving the cecum. Ultimately, would benefit from a colonoscopy in 6-8 weeks as outpatient
- Pending his renal recovery, would consider repeat CT imaging later this admission given the previous pneumatosis
- Monitor with serial abdominal exams
- Avoid periods of hypotension, maintain MAPs > 65
- No plans for a repeat EGD at this time. Continue to monitor for signs suggestive of recurrent bleeding. Would still expect melena over next 24-48 hrs
- Rest of care as per primary ICU team
GI will continue to follow. Please call with any questions or concerns.
Subjective
Subjective
Date of Service: November 28, 2024
- S/p EGD 11/27/24: Found to have a cratered duodenal ulcer within the duodenal bulb with an overlying clot and a NBVV, s/p epi/bicap and hemospray for hemostasis, old blood throughout duodenum, along with LA Grade C esophagitis, otherwise rest of
stomach and exam was normal
- Hgb stable 9.2 -> 9.2 -with slight drift in Hgb to 8.5 and down-trending BUN 79 -> 68
- Remains HD stable with HR 90-100s
Feeling well, resting comfortably this AM without any abdominal pain or other nausea/vomiting. Reported having less bloody stools overnight.
Objective
Data Reviewed
Laboratory Data:
Laboratory Results
11/28/24 03:32
Laboratory Results
PT 15.4 Sec (11.4-14.6) H 11/27/24 04:36
INR 1.16 11/27/24 04:36
APTT 23.5 Sec (23.4-35.0) 11/27/24 04:36
Phosphorus 3.9 mg/dl (2.5-4.5) 11/28/24 03:32
Magnesium 2.2 mg/dl (1.6-2.3) 11/28/24 03:32
Total Bilirubin 1.2 mg/dl (0.2-1.3) 11/27/24 19:34
AST 28 U/L (17-59) 11/27/24 19:34
ALT 11 U/L (0-50) 11/27/24 19:34
Alkaline Phosphatase 48 U/L (38-126) 11/27/24 19:34
Lipase 93 U/L (23-300) 11/27/24 02:33
Vital Signs and I&O:
Vital Signs
Temp Pulse Resp BP Pulse Ox
98.4 F 100 15 103/57 94
11/28/24 03:15 11/28/24 03:00 11/28/24 03:00 11/28/24 03:00 11/28/24 03:00
I&O
11/26/24 11/27/24 11/28/24
06:59 06:59 06:59
Intake Total 2960 / 2960
Output Total 650 / 650
Balance 2310 / 2310
Physical Exam
Physical Exam
HEENT: Anicteric and Moist mucous membranes
Cardiology: Other (RR on tele)
Pulmonary: Other (Normal WOB on room air)
GI: Soft, Non Distended and Non Tender
Extremities: No Edema
Neuro: Non Focal
--- NOTE | 2024-11-28 08:11 | W.PN.INTV ---
Today's Communication / Plan
Recommendations
Continue trending Hb and transfuse if needed to keep >7-8 g/dL
Goal plt>50k
PPI drip, transitioning to intermittent dosing per GI
If Hb is stable on next blood draw, will transition to clear liquid diet if okay with GI
Hold antiplatelets/anticoagulants for now (including chemical DVT prophylaxis)
Renally dose all medications
Continue antibiotics and follow-up infectious workup; urine culture is now growing GNR although only 30K CFU per mL; GI also believes there is concern for ischemic colitis given initial lactate was 6.8
Assuming no significant decrease in Hb this afternoon, then patient will be downgraded to telemetry. Once downgraded, our service will sign off. Please call us back if there are any additional questions or concerns.
Assessment
-
Assessment: 74-year-old male with a past medical history of GERD + PUD who presents with generalized weakness and episode of passing out. Per EMS, he was complaining of nausea/vomiting and diarrhea and he was covered in feces initially. He says
that he has been having abdominal discomfort that has been feeling crampy. He has been going on and off for several days. He thought that it was due to the heat and humidity outside. He has been taking Pepto-Bismol, Imodium, Tylenol and Aleve to
help his symptoms. Chest 1 day prior to arrival, he had been nauseous and vomiting throughout the day, being triggered even by small sips of water. After each emesis episode, he had a pudding consistency large bowel movement. His symptoms
increasingly worsened, so he came to the ER. While in the ER, he had coffee-ground emesis + grossly bloody stools. Patient states he has had previous episodes of bleeding ulcers in the past associated with excessive Excedrin use. He reports that
he mainly uses Tylenol for pain, with occasional use of Aleve if the Tylenol does not work, but no regular NSAID use. He does not see a physician regularly, and takes no home medications. Initially in the ER he was afebrile to 98.3 �F, tachycardic
to 116, respiratory rate 29, BP 91/65, and saturating 99% on room air. Initial labs showed leukocytosis to 20, Hb 9.6, platelet count 448, serum bicarbonate level 11, potassium level 5.2, creatinine 1.8, glucose 253, lactate 6.8, normal LFTs,
normal lipase and slightly elevated beta-hydroxybutyrate at 0.29. CT abdomen/pelvis was obtained showing no evidence for bowel obstruction, with pneumatosis involving the wall of the cecum without evidence of portal vein air. Also a direct right
inguinal hernia which contains a loop of small bowel. Patient given a 500 cc bolus of NS 0.9%, Zofran, and started on PPI drip and admitted to the ICU for further care with Case Manager Specialist services consulted for further recommendations/management.
Chronic conditions EQUIPMENT OPERATING ENGINEER: GERD, PUD, prediabetes
Impression:
#Acute gastrointestinal hemorrhage with UGIB due to duodenal ulcer (seen on EGD from 11/27/2024) s/p epi injection, bipolar cauterization with hemostatic spray
#Acute blood loss anemia due to above
#Hemorrhagic shock due to above with lactate level initially 6.8 � shock state now resolved
#Ischemic colitis in the setting of shock state
#Abnormal urinalysis with +3 leukocyte esterase, 16�20 urine WBC with concern for UTI
#History of GERD + PUD
#Leukocytosis with sepsis
#NEETA
#Elevated beta-hydroxybutyrate likely due to starvation ketosis
#Lactic acidosis - now resolved
Plan:
- Large-bore IV x 2
- GI consulted, and patient underwent EGD yesterday showing a large nonbleeding duodenal ulcer with a nonbleeding visible vessel. It was injected with epinephrine and treated with bipolar cautery with successful hemostasis. Hemostatic spray also
applied.
- EGD also showed LA grade C esophagitis with no bleeding, medium sized hiatal hernia, and a normal stomach
- Defer starting diet to GI
- PPI gtt
- IVF DC'd gtt
- Trend H/H and transfuse if needed to keep Hb>7-8g/dL; keep plt>50k, INR<1.5
- Patient was transfused 2 units PRBC yesterday, and Hb this morning was 8.5
- CT abdomen/pelvis performed overnight on day of admission, showing pneumatosis involving the wall of the cecum, concerning for ischemic bowel, although no evidence of portal vein air nor free intraperitoneal air. Patient was hypotensive,
although not on vasopressors. Given his prior shock state with elevated lactate level, GI does agree with antibiotics for ischemic colitis
- Maintain MAP >65
- Continue trending lactic acid level until <2 mmol/L
- s/p bicarb gtt; no longer needed given that bicarbonate levels continue to improve and are now 25 as of this AM
- VBG yesterday evening showed pH 7.36, pCO2 40, consistent with metabolic acidosis
- Trend sCr and UOP
- Renally dose all meds/Abx
- Patient has elevated WBC count and was found with feces all over himself initially; patient admits to this, saying that he laid in bed and was too weak/sick to get up out of bed so he urinated/defecated on himself in the bed for days
- Follow up infectious workup including UCx (growing GNR - follow up species/sensitivities) + blood cultures; unclear if urine is a pathological source as only 30,000 CFU/mL seen on urine culture
- Continue with empiric antibiotics - currently on Zosyn
- Continue trending WBC count + temperature curve
- CXR shows no acute cardiopulmonary process
- Maintain SpO2 >90-94%; currently he is on room air, breathing comfortably, saturating 96%
- prn nebulized bronchodilators - not currently bronchospastic
- Incentive spirometer encouraged 10x per hour for at least 4 hrs a day
- Replete electrolytes with K>4, Mg>2
- Maintain euglycemia with goal BG 140-180; A1C: 5.6
- PT/OT
- DVT ppx: SCDs for now; defer starting chemical prophylaxis to GI
On 11/27, Dr. Hoyt called the patient's brother, Carlos, and spoke to him, gave him an update on the clinical status of James. According to Carlos, James does not take care of himself, does not shower and lives like a 'slob.' Will need to
have social work consulted as unclear if the patient has safe environment to be discharged back home to.
Assuming no significant decrease in Hb this afternoon, then patient will be downgraded to telemetry. Once downgraded, our service will sign off. Thank you for allowing us to be involved in the care of this patient, and please call us back if there
are any additional questions or concerns.
Data:
CT Abd/Pelvis without contrast 11/27/2024:
Mild elevation of the right hemidiaphragm.
Coronary artery calcifications are present. Please correlate with symptoms of and risk factors for coronary artery disease, with further workup as clinically appropriate.
The cecum is mobile and located in the left lower abdomen and upper pelvis. There is evidence for pneumatosis involving the wall of the cecum. This finding can be seen with ischemia, although can also be seen as a benign finding. Please correlate
clinically. No evidence for portal vein air. There is no free intraperitoneal air.
There is no evidence for bowel obstruction.
Right inguinal hernia containing loops of small bowel. No CT findings to suggest bowel obstruction or strangulation, but please correlate clinically.
Significantly enlarged prostate gland extending into the base of bladder.
Bony degenerative changes.
Total time spent today was 58 minutes for this encounter. Time includes reviewing laboratory test/imaging results, reviewing pertinent medical records, obtaining and reviewing medical history, performing an appropriate exam, ordering medications,
tests and procedures. Time also includes documentation of this encounter, coordinating patient care and communicating with other healthcare professionals. Total time does not include separately billed tests performed on this date of service.
Subjective Dataa
Subjective Data
Date of Service:
Date of Service: November 28, 2024
Chief Complaint: Case Manager Specialist Follow Up
Subjective:
Patient seen this morning. He feels much better today, less weak. No abdominal pain. Currently on room air saturating 96%, heart rate 85 and BP 116/54. Still having dark stool per rectal tube.
Review of Systems
General: Other (Negative unless mentioned above)
Objective Data
Data Reviewed
Vital Signs / I&O / Oxygen:
Vital Signs
Temp Pulse Resp BP Pulse Ox
98.6 F 94 13 136/66 94
11/28/24 07:43 11/28/24 07:30 11/28/24 07:30 11/28/24 07:00 11/28/24 07:44
Intake and Output
11/27/24 11/28/24 11/29/24
06:59 06:59 06:59
Intake Total 3030 / 3030
Output Total 650 / 650 625 / 625
Balance 2380 / 2380 -625 / -625
SaO2 94
Physical Exam
General: Respiratory Distress (negative), Comfortable, Chills (negative), Sweats (negative) and Good Appetite
HEENT: Normocephalic and Anicteric
Cardiovascular: S1-S2 and Peripheral Edema (negative)
Respiratory: Clear, Wheeze (negative), Crackles (negative), Rhonchi (negative) and Non-Labored Respirations
GI: Soft, Non Distended, Non Tender and Normal Bowel Sounds
Neurology: Awake, Alert, Oriented and Tremors (negative)
Skin: Warm, Dry and Other (Multiple toe abnormalities with deformity seen on right great toe)
Labs/Micro/Reports
Lab Data
11/28/24 03:32
Microbiology
11/27/24 19:34 Nose Nasal Screen MRSA (PCR) - Final
MRSA not detected - performed by PCR methodology.
[2024-11-28 11:00] LABS: Glycohemoglobin (HgbA1c) 5.6 % (4.0-5.6)
--- NOTE | 2024-11-28 13:15 | W.PN.HOSP.TC ---
Today's Communication/Plan
-
PPI ggt
ADAT
monitor WBC
Abx
OK to downgrade to telemetry from my standpoint
Assessment / Plan
Assessment / Plan
HPI: 74 yo M with PMH significant for GERD / PUD who presented to ED complaining of crampy abdominal pain with N/V/D. Patient states that he has been having crampy abdominal pain off-and-on for several days. He initially attributed this to the
heat and humidity. He was taking medications at home including Pepto Bismol, Imodium, Tylenol and Aleve in an attempt to improve his symptoms. On Friday, patient had campy abdominal pain followed by N/V. He had multiple episodes of emesis
throughout the day - typically triggered by sips of water. He notes that each episode of emesis was typically followed by a large, pudding-consistency bowel movement. His symptoms increased in frequency and severity and he presented to the ED for
further evaluation. He has had multiple additional episodes of coffee-ground emesis and grossly bloody stools since arrival in the ED.
Patient states that he has had previous episodes of 'bleeding ulcers' in the past - usually associated with excess Excedrin use.
He has avoided Excedrin since and now take Tylenol mostly for pain. He does report occasional doses of Aleve if the Tylenol does not work - but not regularly.
He denies smoking or alcohol use.
He does not see a physician regularly and takes no daily prescriptions meds.
A/P:
# SIRS (tachycardia/increased RR/hypotension) 2/2 GI Bleeding
#Coffee-ground emesis
#Brisk upper GI bleed
#Ischemic colitis
#Elevated lactate
#Nausea/vomiting
#Abdominal pain
-� Duodenal ulcer with NBVV status post epi/BiCap/Hemospray on 11/27
�Advance to clear liquid diet
� Trend CBC
� Continue IV PPI drip for 72 hours status post EGD
� Colonoscopy as per GI, most likely outpatient in 6 to 8 weeks
� Consider repeat CT imaging pending renal recovery
� Serial abdominal exams
� Continue IV Zosyn given concern for ischemic colitis
#Elevated lactate
� Secondary to GI bleed
� Normalized
#Leukocytosis
� Most likely reactive with acute GI bleed versus infection although less likely
#UTI
� Follow-up cultures, only 30K CFU although with elevated lactate - will tx
� Continue antibiotics
# NEETA v CKD
SCr 1.8 on admission with no prior value for comparison.
Suspect NEETA given bleeding / probable hypovolemia.
IVFs and blood product support and follow for changes in renal function
BUN elevation likely combination of prerenal azotemia and GI bleeding.
# Anion Gap Metabolic Acidosis
# Lactic acidosis
s/p bicarb ggt, dced
-? intestinal ischemia resulting in crampy pain / GI bleeding.
-Non-contrast CT done in the ED without overt evidence of bowel abnormality. Follow formal report
-Pt c/o mild abdominal tenderness, but on exam, soft and no guarding
-Lactate resolved
DVT Prophylaxis: SCDs
Code Status: Full
DW GI
OK to DG
Anticipated Discharge: > 48 hours
Subjective/Interval History
-
Date of Service: November 28, 2024
No further blood in stool
Objective Data
-
Labs:
Laboratory Results
11/28/24 11/28/24
03:32 12:23
WBC 16.3 H
Hgb 8.5 L Pending
Hct 25.1 L
Plt Count 262 D
Sodium 141
Potassium 4.5
Chloride 110 H
Carbon Dioxide 25
BUN 68 H
Creatinine 1.9 H
Glucose 125 H
Calcium 8.7
Vital Signs:
Vital Signs
Temp Pulse Resp BP Pulse Ox
98.6 F 94 13 136/66 94
11/28/24 07:43 11/28/24 07:30 11/28/24 07:30 11/28/24 07:00 11/28/24 07:44
I&O
11/27/24 11/28/24 11/29/24
06:59 06:59 06:59
Intake Total 3030 / 3030
Output Total 650 / 650 625 / 625
Balance 2380 / 2380 -625 / -625
Review of Systems
-
History Source: Patient
All other systems: Not reviewed unless documented
Data Reviewed
-
Diagnostic Radiology: Report Reviewed by me
CT Scan: Report Reviewed by me
Labs: Labs Reviewed by me
[2024-11-28 13:19] LABS: Hemoglobin 8.4 g/dL (13.0-18.0)
--- NOTE | 2024-11-28 14:18 | PTCARENOTE ---
Pt reports feeling better today. Denies nausea. Reports feeling thirsty. Small amount of burgundy stool today. Rectal tube d/c'd. OOB to chair with steady gait. All other assessments unchanged.
--- NOTE | 2024-11-28 19:00 | PTCARENOTE ---
Tolerated clear liquid tray. No BMs this afternoon.
[2024-11-28] MEDS: PROTONIX IV (19:27)
[2024-11-28 20:19] LABS: Hemoglobin 7.6 g/dL (13.0-18.0)
--- NOTE | 2024-11-28 21:26 | PTCARENOTE ---
Assumed care of pt at 1900. Pt is A/O x4, pleasant and cooperative with care. Telemetry level of care. No c/o pain or nausea, has been tolerating clear liquid diet. Protonix drip infusing. Small smear of maroon-colored BM noted at start of shift, pt
cleaned and barrier cream applied. SR 80s-90s on monitor with frequent PACs, occasional PVCs. SpO2 spot-checked, 95% on RA. Repeat HgB done at 1999, 7.6, 1 unit PRBC ordered, transfusion started at 2119.
[2024-11-29] VITALS (11 sets, daily range): BP systolic 97–134; BP diastolic 57–73; PULSE 67–100; O2SAT 96; BMI 23.5
[2024-11-29] MEDS: ZOSYN 50 IV ×4 (00:21→17:38)
[2024-11-29] MEDS: PROTONIX 100 IV (01:23)
[2024-11-29 04:35] LABS: Hematocrit 24.7 % (39.0-52.0); Hemoglobin 8.3 g/dL (13.0-18.0); Mean Corp Hgb Conc. 33.6 g/dL (33.0-37.0); Mean Corpuscular Volume 85.2 fL (80.0-94.0); Platelet Count 205 10^3/uL (130-400); Red Cell Dist. Width 14.8 % (11.5-14.5)
[2024-11-29 04:41] LABS: ALT (SGPT) < 10 U/L (0-50); AST (SGOT) 21 U/L (17-59); Albumin 2.7 g/dl (3.5-5.0); Alkaline Phosphatase 42 U/L (38-126); Blood Urea Nitrogen 38 mg/dl (9-20); Calcium 8.3 mg/dl (8.4-10.2); Carbon Dioxide 27 mmol/L (22-30); Chloride 112 mmol/L (98-107); Estimated Creatinine Clearance 56 ml/min; Glucose 108 mg/dl (70-99); Potassium 4.1 mmol/L (3.5-5.1); Sodium 139 mmol/L (135-145); Total Protein 5.0 g/dl (6.3-8.2); eGFR 56.93
--- NOTE | 2024-11-29 06:09 | W.PN.GI.CBS2 ---
Today's Communication / Plan
-
Slight drift in Hgb but without any signs to suggest recurrent bleeding. Continue strict CLD today and IV PPI gtt. Consider repeat CT imaging tomorrow given previous pneumatosis of the cecum. See rest of care as outlined below.
Assessment / Plan
-
Mr. Yancey is a 74 y.o male with a past medical history of GERD and history of PUD who presented to the ED with abdominal pain and nausea/vomiting and diarrhea. Concern for coffee-ground emesis and bloody stools in ED concerning for which GI has
been consulted for further evaluation and management.
#Coffee Ground Emesis
#Nausea/Vomiting #Abdominal Pain
#Hematochezia 2/2
#Brisk UGIB
#Duodenal Ulcer w/ NBVV (s/p epi/bicap/hemospray 11/27/24)
#LA Grade C Esophagitis
#Hx of PUD
#Ischemic Colitis
#Elevated Lactic Acid
Impression: Patient presenting with worsening abdominal pain and nausea/vomiting over the past several days presenting to the ED with bloody stools and coffee ground emesis. Prior history of PUD and previous taking intermittent NSAIDs concerning for
UGIB given his presentation versus LGIB in setting of possible ischemic colitis given his symptomatology with abdominal pain and bloody stools along with his elevated lactic acid. BUN:Phlebotomy Coordinator ratio also elevated further concerning for UGIB and also
component of hypovolemia as well contributing and intermittent NSAIDs along with a prior history of PUD in the past. Prior EGD 20 years ago with ulcers, has never had a prior colonoscopy in the past. No further bloody stools or melena since his
admission. No other anticoagulants or antiplatelets. CT Abd/pelvis imaging grossly unremarkable as unable to perform CTA due to his NEETA.
Priro CT Abd/pelvis 11/27/2024- Impression: Pneumatosis involving the wall of the cecum, c/f ischemia without any portal venous air or intraperitoneal air.
- S/p EGD 11/27/24: Found to have a cratered duodenal ulcer within the duodenal bulb with an overlying clot and a NBVV, s/p epi/bicap and hemospray for hemostasis, old blood throughout duodenum, along with LA Grade C esophagitis, otherwise rest of
stomach and exam was normal
- Slight drift in Hgb but drift in all cell lines from prior CBC and suspect dilutional. Without any signs to suggest recurrent upper GI bleeding and down-trending BUN. Continues to remain HD-stable with previous HR 90-110s -> 60-70s.
Recommendations:
- Continue CLD, would defer advancing diet today
- Trend serial Hgb with CBC q 12 hrs, transfuse for goal Hgb > 8.0
- Continue IV PPI gtt x 72 hrs, may transition to IV PPI BiD tomorrow
- Agree with continued IV Zosyn given c/f ischemic colitis
- Lactate normalized 6.8 -> 2.0
- Suspect his previous bloody stools secondary to brisk UGIB and may have had oozing given the concern for ischemic colitis
- Would defer any plans for a colonoscopy given the concern for pneumatosis involving the cecum. Ultimately, would benefit from a colonoscopy in 6-8 weeks as outpatient
- Pending his renal recovery, would consider repeat CT imaging later this admission given the previous pneumatosis
- Favor repeat CT imaging tomorrow with IV contrast for f/u of prior imaging
- No plans for a repeat EGD at this time. Continue to monitor for signs suggestive of recurrent bleeding
- Ultimately, will need a repeat EGD in 8-12 weeks as an outpatient given his LA Grade C esophagitis to rule out underlying Inman's
- Monitor with serial abdominal exams
- Avoid periods of hypotension, maintain MAPs > 65
- Strict avoidance of all NSAIDs
- Rest of care as per primary ICU team
GI will continue to follow. Please call with any questions or concerns.
Subjective
Subjective
Date of Service: November 29, 2024
- Transfused an additional 1 uPRBC for Hgb 7.6 -> 8.3
- Remains HD-stable with improving HRs 90-100s -> 60-70s
- BUN down-trending 79 -> 68 -> 38
- Small episode of burgundy stool on 11/28. Otherwise, no acute events overnight
Resting comfortably in bed, denies any recent bloody stools or melena this AM or overnight. No further abdominal pain or other nausea/vomiting.
Objective
Data Reviewed
Laboratory Data:
Laboratory Results
11/29/24 04:09
11/29/24 04:09
Laboratory Results
PT 15.4 Sec (11.4-14.6) H 11/27/24 04:36
INR 1.16 11/27/24 04:36
APTT 23.5 Sec (23.4-35.0) 11/27/24 04:36
Phosphorus 3.9 mg/dl (2.5-4.5) 11/28/24 03:32
Magnesium 2.2 mg/dl (1.6-2.3) 11/28/24 03:32
Total Bilirubin 0.9 mg/dl (0.2-1.3) 11/29/24 04:09
AST 21 U/L (17-59) 11/29/24 04:09
ALT < 10 U/L (0-50) 11/29/24 04:09
Alkaline Phosphatase 42 U/L (38-126) 11/29/24 04:09
Lipase 93 U/L (23-300) 11/27/24 02:33
Vital Signs and I&O:
Vital Signs
Temp Pulse Resp BP Pulse Ox
99.1 F 63 13 97/63 96
11/29/24 03:04 11/29/24 06:00 11/29/24 06:00 11/29/24 04:00 11/29/24 06:00
I&O
11/27/24 11/28/24 11/29/24
06:59 06:59 06:59
Intake Total 3030 / 3030 2130 / 2130
Output Total 650 / 650 1500 / 1500
Balance 2380 / 2380 630 / 630
Physical Exam
Physical Exam
HEENT: Anicteric and Moist mucous membranes
Cardiology: Other (RR on tele)
Pulmonary: Other (Normal WOB on room air)
GI: Soft, Non Distended and Non Tender
Extremities: No Edema
Neuro: Non Focal
--- NOTE | 2024-11-29 10:53 | PN.CDI ---
CDI
- -
CDI:
Physician Documentation Request
Admit Date: 11/27/24 05:14
Dear Doctor Florencio,
Please review the following and provide your response in the progress notes.
Clinical Indicators:
PN, 11/29
#- S/p EGD 11/27/24: Found to have a cratered duodenal ulcer within the duodenal bulb
#...with an overlying clot and a NBVV, s/p epi/bicap and hemospray for hemostasis,
#...old blood throughout duodenum, along with LA Grade C esophagitis,
#...otherwise rest of stomach and exam was normal
Based on the above and your clinical assessment, please clarify which of the following accurately represents the acuity of the duodenal ulcer...:
Acute duodenal ulcer with hemorrhage
Acute on Chronic duodenal ulcer with hemorrhage
Chronic duodenal ulcer with hemorrhage
Acute duodenal ulcer without hemorrhage
Acute on Chronic duodenal ulcer without hemorrhage
Chronic duodenal ulcer without hemorrhage
Other(please specify)
Use of terms such as suspected, likely, concern for, or probable (associated with a specific diagnosis that is being evaluated, monitored, or treated as if it exists) are acceptable and can be coded in the inpatient setting, when documented at the
time of discharge.
Thank you,
Meryl Medina RN BSN CCDS
CDI Specialist
Please contact via tiger text
Please use your independent medical judgment in providing your response.
--- NOTE | 2024-11-29 11:22 | PTCARENOTE ---
report called to [facility], transport with all belongings
--- NOTE | 2024-11-29 11:45 | PN.CDI ---
CDI
- -
CDI:
Physician Documentation Request
Admit Date: 11/27/24 05:14
Dear Doctor Shahram,
Please review the following and provide your response in the progress notes.
Clinical Indicators:
11/27/24 07:00 (created 11/27/24 07:23) - Patient Care Note
#...MASB within gluteal folds,
#...stage 1 on right hip...
Physician documentation of the type and location of wounds is required for compliant documentation. Based on the above clinical findings and your assessment, please provide the following in your progress note:
Yes, stage 1 pressure injury right hip, POA
No, stage 1 pressure injury, right hip
Other(please specify)
1. Location of the ulcer/wound, including laterality.
2. Type (etiology) of ulcer/wound:
- Diabetic ulcer
- Arterial (ischemic) ulcer
- Traumatic wound
- Venous stasis ulcer
- Pressure (decubitus) ulcer
- Non-healing surgical wound
- Other
3. For a pressure ulcer, please also include the stage* of the ulcer:
- Stage 1 - Skin intact, non-blanchable redness
- Stage 2 - Partial thickness loss of dermis, includes intact or open blister
- Stage 3 - Full thickness tissue not including bone, tendon or muscle
- Stage 4 - Full thickness tissue loss, including exposed bone, tendon or muscle
- Unstageable - Full thickness loss in which the base of the ulcer is covered by slough (yellow, walton, bar, green or brown) and/or eschar (walton, brown or black) in the wound bed.
Use of terms such as suspected, likely, concern for, or probable (associated with a specific diagnosis that is being evaluated, monitored, or treated as if it exists) are acceptable and can be coded in the inpatient setting, when documented at the
time of discharge.
Thank you,
Meryl Medina RN BSN CCDS
CDI Specialist
Please contact via tiger text
Please use your independent medical judgment in providing your response.
*Source: National Pressure Ulcer Advisory Panel (NPUAP)
--- NOTE | 2024-11-29 12:33 | W.PN.HOSP.TC ---
Today's Communication/Plan
-
Cont CLD
Trend HgB
Possible CT A/P tomorrow, serial abdominal exams
IV abx
Assessment / Plan
Assessment / Plan
HPI: 74 yo M with PMH significant for GERD / PUD who presented to ED complaining of crampy abdominal pain with N/V/D. Patient states that he has been having crampy abdominal pain off-and-on for several days. He initially attributed this to the
heat and humidity. He was taking medications at home including Pepto Bismol, Imodium, Tylenol and Aleve in an attempt to improve his symptoms. On Friday, patient had campy abdominal pain followed by N/V. He had multiple episodes of emesis
throughout the day - typically triggered by sips of water. He notes that each episode of emesis was typically followed by a large, pudding-consistency bowel movement. His symptoms increased in frequency and severity and he presented to the ED for
further evaluation. He has had multiple additional episodes of coffee-ground emesis and grossly bloody stools since arrival in the ED.
Patient states that he has had previous episodes of 'bleeding ulcers' in the past - usually associated with excess Excedrin use.
He has avoided Excedrin since and now take Tylenol mostly for pain. He does report occasional doses of Aleve if the Tylenol does not work - but not regularly.
He denies smoking or alcohol use.
He does not see a physician regularly and takes no daily prescriptions meds.
A/P:
# SIRS (tachycardia/increased RR/hypotension) 2/2 GI Bleeding
#Coffee-ground emesis
#Brisk upper GI bleed
#Ischemic colitis
#Elevated lactate
#Nausea/vomiting
#Abdominal pain
-� Duodenal ulcer with NBVV status post epi/BiCap/Hemospray on 11/27
-Transfused 1u 11/28 post EGD
�Cont clear liquid diet - continue for now with melena and hgb drop
� Trend CBC
� Continue IV PPI drip for 72 hours status post EGD
-Consider repeat CT imaging tomorrow given previous pneumatosis of the cecum.
� Colonoscopy as per GI, most likely outpatient in 6 to 8 weeks
� Serial abdominal exams
� Continue IV Zosyn given concern for ischemic colitis along with ?UTI
-Strict avoidance NSAIDS
#Elevated lactate
� Secondary to GI bleed
� Normalized
#Leukocytosis
� Most likely reactive with acute GI bleed versus infection although less likely
#UTI
� Follow-up cultures: Pseudomonas aeruginosa
� only 30K CFU although with elevated lactate - will tx
� Continue antibiotics
# NEETA
-resolved with resuscitation
-most likely pre-renal
-BUN elevation likely combination of prerenal azotemia and GI bleeding.
# Anion Gap Metabolic Acidosis, resolved
# Lactic acidosis , resolved
s/p bicarb ggt, dced
-? intestinal ischemia resulting in crampy pain / GI bleeding.
-Non-contrast CT done in the ED without overt evidence of bowel abnormality. Follow formal report
-Pt c/o mild abdominal tenderness, but on exam, soft and no guarding
-Lactate resolved
#Significantly enlarged prostate gland
-f/u urology outpatient
-add tamsulosin if urinary issues, none at this time
DVT Prophylaxis: SCDs
Code Status: Full
Anticipated Discharge: 24 - 48 hours
Subjective/Interval History
-
Date of Service: November 29, 2024
black stools, mild; required 1 u transfusion 11/28
Objective Data
-
Labs:
Laboratory Results
11/29/24
04:09
WBC 10.2
Hgb 8.3 L
Hct 24.7 L
Plt Count 205 D
Sodium 139
Potassium 4.1
Chloride 112 H
Carbon Dioxide 27
BUN 38 H
Creatinine 1.3
Glucose 108 H
Calcium 8.3 L
Total Bilirubin 0.9
AST 21
ALT < 10
Alkaline Phosphatase 42
Vital Signs:
Vital Signs
Temp Pulse Resp BP Pulse Ox
98.3 F 86 15 117/73 97
11/29/24 07:46 11/29/24 10:30 11/29/24 10:30 11/29/24 08:20 11/29/24 10:30
I&O
11/28/24 11/29/24 11/30/24
06:59 06:59 06:59
Intake Total 3030 / 3030 2130 / 2130 640 / 640
Output Total 650 / 650 1500 / 1500 350 / 350
Balance 2380 / 2380 630 / 630 290 / 290
Review of Systems
-
History Source: Patient
All other systems: Not reviewed unless documented
Physical Exam
-
General: Well Developed, Well Nourished, Comfortable, Conversant and Appears Chronically Ill
HEENT: Normocephalic, Atraumatic, Nose Appears Normal and Ears Appear Normal
Respiratory: Clear to Auscultation and Non Labored Respirations; Negative Accessory Resp Muscle Use
Cardiac: Regular Rhythm and S1/S2
GI: Soft, Nontender, Nondistended and Other (decreased bowel sound )
Skin: Warm and Dry
Neuro: Awake and Alert
Psych: Calm and Intact Judgement/Insight (somewhat)
Data Reviewed
-
Diagnostic Radiology: Report Reviewed by me
CT Scan: Report Reviewed by me
Labs: Labs Reviewed by me
--- NOTE | 2024-11-29 13:05 | CM ---
Initial assessment completed with patient who lives alone in a 2 story home plus basement and attic, B/B on 2nd,no steps to enter. 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 No DME and no in-home services. Does not have a PCP.
Pharmacy is [facility] in [place]. Discharge POC: Refer to free clinic.
[facility] notified of no insurance. Patient states he does have approximately $40,000 to $50,000 in the bank from parents inheritance. This is what he lives on and chooses not to pay for health insurance. Already has hospital bills totally
approximately $85, 000. He claims he is not eligible for Medicare because he does not have enough working time to qualify. 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
[2024-11-29] MEDS: PROTONIX IV (14:12)
[2024-11-30] MEDS: PROTONIX 100 IV (00:50)
[2024-11-30] MEDS: ZOSYN 50 IV ×4 (00:57→19:43)
[2024-11-30 03:52] VITALS: BP 111/68
[2024-11-30 06:00] VITALS: BMI 23.3
--- NOTE | 2024-11-30 06:11 | W.PN.GI.CBS2 ---
Today's Communication / Plan
-
No signs to suggest recurrent GI bleeding. Ordered repeat CT Abd/pelvis given renal recovery as previous CT concerning for pneumatosis. Continue IV abx along with IV PPI BiD while inpatient. Rest of care as outlined below.
Assessment / Plan
-
Mr. Yancey is a 74 y.o male with a past medical history of GERD and history of PUD who presented to the ED with abdominal pain and nausea/vomiting and diarrhea. Concern for coffee-ground emesis and bloody stools in ED concerning for which GI has
been consulted for further evaluation and management.
#Coffee Ground Emesis
#Nausea/Vomiting #Abdominal Pain
#Hematochezia 2/2
#Brisk UGIB
#Duodenal Ulcer w/ NBVV (s/p epi/bicap/hemospray 11/27/24)
#Suspect 2/2 NSAID-induced PUD
#LA Grade C Esophagitis
#Hx of PUD
#Ischemic Colitis
#Elevated Lactic Acid
Impression: Patient presenting with worsening abdominal pain and nausea/vomiting over the past several days presenting to the ED with bloody stools and coffee ground emesis. Prior history of PUD and previous taking intermittent NSAIDs concerning for
UGIB given his presentation versus LGIB in setting of possible ischemic colitis given his symptomatology with abdominal pain and bloody stools along with his elevated lactic acid. 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
component of hypovolemia as well contributing and intermittent NSAIDs along with a prior history of PUD in the past. Prior EGD 20 years ago with ulcers, has never had a prior colonoscopy in the past. No further bloody stools or melena since his
admission. No other anticoagulants or antiplatelets. CT Abd/pelvis imaging grossly unremarkable as unable to perform CTA due to his NEETA.
Priro CT Abd/pelvis 11/27/2024- Impression: Pneumatosis involving the wall of the cecum, c/f ischemia without any portal venous air or intraperitoneal air.
- S/p EGD 11/27/24: Found to have a cratered duodenal ulcer within the duodenal bulb with an overlying clot and a NBVV, s/p epi/bicap and hemospray for hemostasis, old blood throughout duodenum, along with LA Grade C esophagitis, otherwise rest of
stomach and exam was normal
- Slight drift in Hgb but drift in all cell lines from prior CBC and suspect dilutional. Continues to remain HD-stable without any further bloody stools. BUN now normalized 68 -> 38 -> 20 and stable Hgb without signs to suggest recurrent upper GI
bleeding
Recommendations:
- Continue CLD, may ADAT after repeat CT imaging
- Trend serial Hgb with CBC q daily, transfuse for goal Hgb > 8.0
- May stop IV PPI gtt, start IV PPI while inpatient
- Can transition to PPI 40 mg BiD for 8 weeks and once daily indefinitely given severity of UGIB after discharge
- Agree with continued IV Zosyn given c/f ischemic colitis, can transition to Augmentin near discharge for total of 10-day course
- Repeat CT Abd/pelvis w/ IV and oral contrast given previous c/f pneumatosis of cecum on previous dry CT scan and improving renal function
- No further abdominal pain and reassuring abdominal exam, however still favor f/u repeat imaging prior to discharge
- Ultimately, will need a repeat EGD in 8-12 weeks as an outpatient given his LA Grade C esophagitis to rule out underlying Inman's along with f/u the size of the large duodenal ulcer (although suspect 2/2 NSAIDs)
- Will also need an eventual colonoscopy, this can be coordinated as an outpatient as well at the time of his repeat EGD
- Advised strict avoidance of all NSAIDs, cessation of alcohol
- Avoid periods of hypotension, maintain MAPs > 65
- Strict avoidance of all NSAIDs
- Rest of care as per primary team
Discussed with internal medicine team. GI will continue to follow. Please call with any questions or concerns.
Subjective
Subjective
Date of Service: November 30, 2024
- Remains HD-stable without any further bloody stools
- BUN now normalized 68 -> 38 -> 20 and stable Hgb
- Otherwise, no acute events overnight
Resting comfortably in bed, continues to deny any further melena or bloody stools. No other abdominal pain or nausea/vomiting. Does note taking previous NSAIDs (Aleve) prior to admission.
Objective
Data Reviewed
Laboratory Data:
Laboratory Results
PT 15.4 Sec (11.4-14.6) H 11/27/24 04:36
INR 1.16 11/27/24 04:36
APTT 23.5 Sec (23.4-35.0) 11/27/24 04:36
Phosphorus 3.9 mg/dl (2.5-4.5) 11/28/24 03:32
Magnesium 2.2 mg/dl (1.6-2.3) 11/28/24 03:32
Total Bilirubin 0.9 mg/dl (0.2-1.3) 11/29/24 04:09
AST 21 U/L (17-59) 11/29/24 04:09
ALT < 10 U/L (0-50) 11/29/24 04:09
Alkaline Phosphatase 42 U/L (38-126) 11/29/24 04:09
Lipase 93 U/L (23-300) 11/27/24 02:33
Vital Signs and I&O:
Vital Signs
Temp Pulse Resp BP Pulse Ox
99 F 71 17 111/68 97
11/30/24 03:52 11/30/24 03:52 11/30/24 03:52 11/30/24 03:52 11/30/24 03:52
I&O
11/28/24 11/29/24 11/30/24
06:59 06:59 06:59
Intake Total 3030 / 3030 2130 / 2130 880 / 880
Output Total 650 / 650 1500 / 1500 1050 / 1050
Balance 2380 / 2380 630 / 630 -170 / -170
Physical Exam
Physical Exam
HEENT: Anicteric and Moist mucous membranes
Pulmonary: Other (Normal WOB on room air)
GI: Soft, Non Distended and Non Tender
Extremities: No Edema
Neuro: Non Focal
[2024-11-30 07:28] LABS: Hematocrit 24.6 % (39.0-52.0); Hemoglobin 8.1 g/dL (13.0-18.0); Mean Corp Hgb Conc. 32.9 g/dL (33.0-37.0); Mean Corpuscular Volume 86.0 fL (80.0-94.0); Platelet Count 216 10^3/uL (130-400); Red Cell Dist. Width 15.2 % (11.5-14.5)
[2024-11-30 07:37] VITALS: BP 114/64
[2024-11-30 07:56] LABS: ALT (SGPT) 12 U/L (0-50); AST (SGOT) 25 U/L (17-59); Albumin 2.9 g/dl (3.5-5.0); Alkaline Phosphatase 43 U/L (38-126); Blood Urea Nitrogen 20 mg/dl (9-20); Calcium 8.6 mg/dl (8.4-10.2); Carbon Dioxide 26 mmol/L (22-30); Chloride 108 mmol/L (98-107); Estimated Creatinine Clearance 61 ml/min; Glucose 99 mg/dl (70-99); Potassium 3.7 mmol/L (3.5-5.1); Sodium 137 mmol/L (135-145); Total Protein 5.2 g/dl (6.3-8.2); eGFR > 60.00
[2024-11-30] MEDS: NSS (PRESERVATIVE FREE) 10 ML IV ×2 (09:41→19:43)
[2024-11-30] MEDS: PROTONIX IV 40 MG IV ×2 (09:41→19:43)
[2024-11-30] MEDS: OMNIPAQUE 50 ML PO (09:42)
[2024-11-30 11:06] VITALS: BP 114/66
--- NOTE | 2024-11-30 12:59 | W.PN.HOSP.TC ---
Today's Communication/Plan
-
Switch PPI ggt to BID Dosing
CT A/P
ADAT after CT A/P if unremarkable
Assessment / Plan
Assessment / Plan
HPI: 74 yo M with PMH significant for GERD / PUD who presented to ED complaining of crampy abdominal pain with N/V/D. Patient states that he has been having crampy abdominal pain off-and-on for several days. He initially attributed this to the
heat and humidity. He was taking medications at home including Pepto Bismol, Imodium, Tylenol and Aleve in an attempt to improve his symptoms. On Friday, patient had campy abdominal pain followed by N/V. He had multiple episodes of emesis
throughout the day - typically triggered by sips of water. He notes that each episode of emesis was typically followed by a large, pudding-consistency bowel movement. His symptoms increased in frequency and severity and he presented to the ED for
further evaluation. He has had multiple additional episodes of coffee-ground emesis and grossly bloody stools since arrival in the ED.
Patient states that he has had previous episodes of 'bleeding ulcers' in the past - usually associated with excess Excedrin use.
He has avoided Excedrin since and now take Tylenol mostly for pain. He does report occasional doses of Aleve if the Tylenol does not work - but not regularly.
He denies smoking or alcohol use.
He does not see a physician regularly and takes no daily prescriptions meds.
A/P:
# SIRS (tachycardia/increased RR/hypotension) 2/2 GI Bleeding
#Coffee-ground emesis
#Brisk upper GI bleed
#Ischemic colitis
#Elevated lactate
#Nausea/vomiting
#Abdominal pain
-� Duodenal ulcer with NBVV status post epi/BiCap/Hemospray on 11/27
-Transfused 1u 11/28 post EGD
�Cont clear liquid diet - ADAT after CT imaging
� Trend CBC
� S/p IV PPI drip for 72 hours - now switch to IV PPI BID; Can transition to PPI 40 mg BiD for 8 weeks and once daily indefinitely given severity of UGIB after discharge
- repeat CT imaging today given previous pneumatosis of the cecum.
� repeat EGD in 8-12 weeks as an outpatient
- also need an eventual colonoscopy
� Serial abdominal exams
� Continue IV Zosyn given concern for ischemic colitis along with ?UTI - 10 day course appropriate
-Strict avoidance NSAIDS
#Elevated lactate
� Secondary to GI bleed
� Normalized
#Leukocytosis
� Most likely reactive with acute GI bleed versus infection although less likely
#UTI
� Follow-up cultures: Pseudomonas aeruginosa
� only 30K CFU although with elevated lactate - will tx
� Continue antibiotics
# NEETA
-resolved with resuscitation
-most likely pre-renal
-BUN elevation likely combination of prerenal azotemia and GI bleeding.
# Anion Gap Metabolic Acidosis, resolved
# Lactic acidosis , resolved
s/p bicarb ggt, dced
-? intestinal ischemia resulting in crampy pain / GI bleeding.
-Non-contrast CT done in the ED without overt evidence of bowel abnormality. Follow formal report
-Pt c/o mild abdominal tenderness, but on exam, soft and no guarding
-Lactate resolved
#Significantly enlarged prostate gland
-f/u urology outpatient
-add tamsulosin if urinary issues, none at this time
DVT Prophylaxis: SCDs
Code Status: Full
Total time spent on today's encounter was 51 minutes which included time spent in counseling the patient/family regarding diagnosis and treatment plan as listed above, goals of care, and symptom management. Case was discussed with nursing staff,
specialists, and care coordinators/case management. All labs and imaging personally reviewed by me. Remainder the time spent in detailed review of previous records, lab data, imaging, and other medical provider documentation.
Anticipated Discharge: Within 24 hours
Subjective/Interval History
-
Date of Service: November 30, 2024
Melanotic stools improving
Objective Data
-
Labs:
Laboratory Results
11/30/24
06:56
WBC 7.3
Hgb 8.1 L
Hct 24.6 L
Plt Count 216
Sodium 137
Potassium 3.7
Chloride 108 H
Carbon Dioxide 26
BUN 20
Creatinine 1.2
Glucose 99
Calcium 8.6
Total Bilirubin 1.0
AST 25
ALT 12
Alkaline Phosphatase 43
Vital Signs:
Vital Signs
Temp Pulse Resp BP Pulse Ox
99.2 F 74 18 114/66 96
11/30/24 11:06 11/30/24 11:06 11/30/24 11:06 11/30/24 11:06 11/30/24 11:06
I&O
11/29/24 11/30/24 12/01/24
06:59 06:59 06:59
Intake Total 2130 / 2130 1000 / 1000
Output Total 1500 / 1500 1625 / 1625
Balance 630 / 630 -625 / -625
Review of Systems
-
History Source: Patient
All other systems: Not reviewed unless documented
Physical Exam
-
General: Well Developed, Well Nourished, Comfortable, Conversant and Appears Chronically Ill
HEENT: Normocephalic, Atraumatic, Nose Appears Normal and Ears Appear Normal
Respiratory: Clear to Auscultation and Non Labored Respirations; Negative Accessory Resp Muscle Use
Cardiac: Regular Rhythm and S1/S2
GI: Soft, Nontender, Nondistended and Other
Skin: Warm and Dry
Neuro: Awake and Alert
Psych: Calm and Intact Judgement/Insight (somewhat)
Data Reviewed
-
Diagnostic Radiology: Report Reviewed by me
CT Scan: Report Reviewed by me
Labs: Labs Reviewed by me
[2024-11-30 15:55] VITALS: BP 103/65
--- NOTE | 2024-11-30 15:57 | W.PN.UPDATE ---
Update Note
Progress Note Update
Brief GI Note:
Reviewed recent CT Abd/pelvis imaging from 11/30 and without any further progression or other complications given previous concern for ischemic colitis / prior pneumatosis involving the cecal wall. His abdominal exam remains benign and without any
further bloody stools. Ultimately, he would still would benefit from a colonoscopy but would defer at this time. This can be pursued in the next 8-12 weeks which can be coordinated at the same time of his repeat EGD. Okay to advance diet as
tolerated and continue PPI 40 mg BiD for 8 weeks and then once daily indefinitely given the severity of his upper GI bleed and likely related to prior NSAIDs. Have sent a message to our office to coordinate close follow-up after discharge. See
additional recommendations from same day progress note written earlier today.
Discussed with primary internal medicine team. GI will sign-off, please re-contact with any questions or concerns.
[2024-11-30 19:24] VITALS: BP 109/65
[2024-11-30] MEDS: FLUSH (NSS) 1 FLUSH IV (19:44)
[2024-11-30 23:48] VITALS: BP 123/75
[2024-12-01] VITALS (9 sets, daily range): BP systolic 118–137; BP diastolic 63–97; PULSE 111–143; BMI 23.1
[2024-12-01] MEDS: ZOSYN 50 IV ×4 (01:48→17:56)
--- NOTE | 2024-12-01 01:59 | W.PN.UPDATE ---
Update Note
Progress Note Update
Patient with multiple loose bloody bowel movements overnight. Vital signs are stable, patient denies lightheadedness/dizziness, palpitation, weakness. Ordered H&H, awaiting results. Patient made NPO. IV fluids ordered NSS @ 75 mls/hr.
[2024-12-01 02:47] LABS: Hematocrit 25.3 % (39.0-52.0); Hemoglobin 8.5 g/dL (13.0-18.0)
[2024-12-01] MEDS: NSS 1000 IV (02:55)
--- NOTE | 2024-12-01 06:30 | PTCARENOTE ---
Pt AAOX3 able to make his needs known. Pt had 2 loose dark stools overnight.PLY BANDER charge account identification clerk was made aware of it.Pt was made NPO. IV fluids ordered. Pt hgb was send & 8.5 noted. Pt asymptomatic.VSS. Plan of care continued on pt. No new orders at this
time.Call mace in reach.
[2024-12-01 07:44] LABS: Hematocrit 26.5 % (39.0-52.0); Hemoglobin 8.6 g/dL (13.0-18.0); Mean Corp Hgb Conc. 32.5 g/dL (33.0-37.0); Mean Corpuscular Volume 87.2 fL (80.0-94.0); Platelet Count 238 10^3/uL (130-400); Red Cell Dist. Width 15.8 % (11.5-14.5)
[2024-12-01 08:15] LABS: ALT (SGPT) 19 U/L (0-50); AST (SGOT) 34 U/L (17-59); Albumin 3.1 g/dl (3.5-5.0); Alkaline Phosphatase 47 U/L (38-126); Blood Urea Nitrogen 12 mg/dl (9-20); Calcium 8.5 mg/dl (8.4-10.2); Carbon Dioxide 24 mmol/L (22-30); Chloride 108 mmol/L (98-107); Estimated Creatinine Clearance 73 ml/min; Glucose 89 mg/dl (70-99); Potassium 3.9 mmol/L (3.5-5.1); Sodium 136 mmol/L (135-145); Total Protein 5.4 g/dl (6.3-8.2); eGFR > 60.00
[2024-12-01] MEDS: PROTONIX IV 40 MG IV ×2 (08:41→20:13)
[2024-12-01] MEDS: NSS (PRESERVATIVE FREE) 10 ML IV ×2 (08:41→20:13)
[2024-12-01 12:20] LABS: Hematocrit 25.7 % (39.0-52.0); Hemoglobin 8.5 g/dL (13.0-18.0); Mean Corp Hgb Conc. 33.1 g/dL (33.0-37.0); Mean Corpuscular Volume 84.5 fL (80.0-94.0); Platelet Count 241 10^3/uL (130-400); Red Cell Dist. Width 15.7 % (11.5-14.5)
--- NOTE | 2024-12-01 13:47 | W.PN.HOSP.TC ---
Today's Communication/Plan
-
Monitor Hgb
ADAT again
Assessment / Plan
Assessment / Plan
HPI: 74 yo M with PMH significant for GERD / PUD who presented to ED complaining of crampy abdominal pain with N/V/D. Patient states that he has been having crampy abdominal pain off-and-on for several days. He initially attributed this to the
heat and humidity. He was taking medications at home including Pepto Bismol, Imodium, Tylenol and Aleve in an attempt to improve his symptoms. On Friday, patient had campy abdominal pain followed by N/V. He had multiple episodes of emesis
throughout the day - typically triggered by sips of water. He notes that each episode of emesis was typically followed by a large, pudding-consistency bowel movement. His symptoms increased in frequency and severity and he presented to the ED for
further evaluation. He has had multiple additional episodes of coffee-ground emesis and grossly bloody stools since arrival in the ED.
Patient states that he has had previous episodes of 'bleeding ulcers' in the past - usually associated with excess Excedrin use.
He has avoided Excedrin since and now take Tylenol mostly for pain. He does report occasional doses of Aleve if the Tylenol does not work - but not regularly.
He denies smoking or alcohol use.
He does not see a physician regularly and takes no daily prescriptions meds.
A/P:
# SIRS (tachycardia/increased RR/hypotension) 2/2 GI Bleeding
#Coffee-ground emesis
#Brisk upper GI bleed
#Ischemic colitis
#Elevated lactate
#Nausea/vomiting
#Abdominal pain
-� Duodenal ulcer with NBVV status post epi/BiCap/Hemospray on 11/27
-Transfused 1u 11/28 post EGD
� Trend CBC
� S/p IV PPI drip for 72 hours - now switch to IV PPI BID; Can transition to PPI 40 mg BiD for 8 weeks and once daily indefinitely given severity of UGIB after discharge
- repeat CT imaging with no obvious acute abnormality;
� repeat EGD in 8-12 weeks as an outpatient
- also need an eventual colonoscopy
� Serial abdominal exams
� Continue IV Zosyn given concern for ischemic colitis along with ?UTI - 10 day course appropriate
-Strict avoidance NSAIDS
� With bloody bowel movements overnight, repeat CBC and advance diet slowly again. Hemoglobin remained stable and BUN remained stable as well, clinical suspicion for acute GI bleed is lower and most likely will hold for blood
#Elevated lactate
� Secondary to GI bleed
� Normalized
#Leukocytosis
� Most likely reactive with acute GI bleed versus infection although less likely
#UTI
� Follow-up cultures: Pseudomonas aeruginosa
� only 30K CFU although with elevated lactate - will tx
� Continue antibiotics
# NEETA
-resolved with resuscitation
-most likely pre-renal
-BUN elevation likely combination of prerenal azotemia and GI bleeding.
# Anion Gap Metabolic Acidosis, resolved
# Lactic acidosis , resolved
s/p bicarb ggt, dced
-? intestinal ischemia resulting in crampy pain / GI bleeding.
-Non-contrast CT done in the ED without overt evidence of bowel abnormality. Follow formal report
-Pt c/o mild abdominal tenderness, but on exam, soft and no guarding
-Lactate resolved
#Significantly enlarged prostate gland
-f/u urology outpatient
-add tamsulosin if urinary issues, none at this time
DVT Prophylaxis: SCDs
Code Status: Full
Total time spent on today's encounter was 52 minutes which included time spent in counseling the patient/family regarding diagnosis and treatment plan as listed above, goals of care, and symptom management. Case was discussed with nursing staff,
specialists, and care coordinators/case management. All labs and imaging personally reviewed by me. Remainder the time spent in detailed review of previous records, lab data, imaging, and other medical provider documentation.
Anticipated Discharge: Within 24 hours
Subjective/Interval History
-
Date of Service: December 01, 2024
Had loose bloody bowel movements overnight, hemoglobin and BUN remained stable
Objective Data
-
Labs:
Laboratory Results
12/01/24 12/01/24 12/01/24
02:15 06:53 11:43
WBC 6.5 6.7
Hgb 8.5 L 8.6 L 8.5 L
Hct 25.3 L 26.5 L 25.7 L
Plt Count 238 241
Sodium 136
Potassium 3.9
Chloride 108 H
Carbon Dioxide 24
BUN 12
Creatinine 1.0
Glucose 89
Calcium 8.5
Total Bilirubin 0.8
AST 34
ALT 19
Alkaline Phosphatase 47
Vital Signs:
Vital Signs
Temp Pulse Resp BP Pulse Ox
98.3 F 73 18 128/82 98
12/01/24 11:39 12/01/24 11:39 12/01/24 11:39 12/01/24 11:39 12/01/24 11:39
I&O
11/30/24 12/01/24 12/02/24
06:59 06:59 06:59
Intake Total 1000 / 1000 650 / 650
Output Total 1625 / 1625 1325 / 1325
Balance -625 / -625 -675 / -675
Review of Systems
-
History Source: Patient
All other systems: Not reviewed unless documented
Physical Exam
-
General: Well Developed, Well Nourished, Comfortable, Conversant and Appears Chronically Ill
HEENT: Normocephalic, Atraumatic, Nose Appears Normal and Ears Appear Normal
Respiratory: Clear to Auscultation and Non Labored Respirations; Negative Accessory Resp Muscle Use
Cardiac: Regular Rhythm and S1/S2
GI: Soft, Nontender, Nondistended and Other
Skin: Warm and Dry
Neuro: Awake and Alert
Psych: Calm and Intact Judgement/Insight (somewhat)
--- NOTE | 2024-12-01 16:43 | PTCARENOTE ---
Received patient this am AAOX3. Pt impulsive at times. Pt refusing to eat clear liquids or full liquids. Pt stated that 'if he doesn't eat he wont have bloody bowel movement and he doesn't like any of those foods.' Dr. Omalley made aware. Pt's
diet increased to Low Residue. Pt agreed to eat. Continued to assess patient status.
--- NOTE | 2024-12-01 16:47 | PTCARENOTE ---
1535 Pt walking with physical therapy in hallway. HRR range 130-150 while walking. Pt was also talking the whole time he was ambulating. Pt sat down in Hallway. Pt's HR range 112-130. Pt taken back to room. EKG done. NSR with PVC's. Pt had short
runs of A-Fib on tele. Dr. Omalley made aware. Pt's HR range came down to 80-100 range. Made patient comfortable. Cont to assess patients status.
[2024-12-02 00:30] VITALS: BP 122/71
[2024-12-02] MEDS: ZOSYN 50 IV ×3 (00:30→12:11)
[2024-12-02] MEDS: FLUSH (NSS) 1 FLUSH IV (00:32)
[2024-12-02 03:25] VITALS: BP 116/56
[2024-12-02 04:48] LABS: Hematocrit 26.5 % (39.0-52.0); Hemoglobin 8.8 g/dL (13.0-18.0); Mean Corp Hgb Conc. 33.2 g/dL (33.0-37.0); Mean Corpuscular Volume 84.9 fL (80.0-94.0); Platelet Count 242 10^3/uL (130-400); Red Cell Dist. Width 15.5 % (11.5-14.5)
[2024-12-02 05:21] LABS: ALT (SGPT) 24 U/L (0-50); AST (SGOT) 45 U/L (17-59); Albumin 3.2 g/dl (3.5-5.0); Alkaline Phosphatase 49 U/L (38-126); Blood Urea Nitrogen 13 mg/dl (9-20); Calcium 8.8 mg/dl (8.4-10.2); Carbon Dioxide 22 mmol/L (22-30); Chloride 109 mmol/L (98-107); Estimated Creatinine Clearance 73 ml/min; Glucose 97 mg/dl (70-99); Potassium 4.0 mmol/L (3.5-5.1); Sodium 137 mmol/L (135-145); Total Protein 5.6 g/dl (6.3-8.2); eGFR > 60.00
[2024-12-02 06:00] VITALS: BMI 22.9
--- NOTE | 2024-12-02 06:36 | PTCARENOTE ---
Pt aaox3 able to make his needs known.Denies pain.Pt had 2 loose black stools mixed with blood.AM labs were send on pt.Pt asymptomatic.PRACTICAL NURSE supervisor concrete block plant made aware of it.Repeat hgb-8.8.Plan of care continued on pt.
[2024-12-02 07:30] VITALS: BP 125/73
[2024-12-02] MEDS: NSS (PRESERVATIVE FREE) 10 ML IV (08:26)
[2024-12-02] MEDS: PROTONIX IV 40 MG IV (08:26)
[2024-12-02 11:27] VITALS: BP 102/58
--- NOTE | 2024-12-02 11:43 | CM ---
Addendum entered by Nikole Cunningham 12/02/24 11:47:
Plan: discharge to home today without services
Original Note:
Met with patient at bedside; explained PT's recommendation for SNF; patient refused; prefers to go home. Reported his brother will transport him home.
Attending and nursing notified of patient's decision
--- NOTE | 2024-12-02 12:29 | W.PN.HOSP.TC ---
Addendum entered and electronically signed by Jordan Omalley MD 12/03/24 17:39:
[id number]
Addendum entered and electronically signed by Jordan Omalley MD 12/03/24 15:49:
Yes, stage 1 pressure injury right hip, POA
Original Note:
Today's Communication/Plan
-
PPI BID
Cipro, Flagyl
Tamsulosin
F/u PCP, GI, Urology outpatient
Holter monitor, and Cards f/u if PCP cannot provide Holter
Assessment / Plan
Assessment / Plan
HPI: 74 yo M with PMH significant for GERD / PUD who presented to ED complaining of crampy abdominal pain with N/V/D. Patient states that he has been having crampy abdominal pain off-and-on for several days. He initially attributed this to the
heat and humidity. He was taking medications at home including Pepto Bismol, Imodium, Tylenol and Aleve in an attempt to improve his symptoms. On Friday, patient had campy abdominal pain followed by N/V. He had multiple episodes of emesis
throughout the day - typically triggered by sips of water. He notes that each episode of emesis was typically followed by a large, pudding-consistency bowel movement. His symptoms increased in frequency and severity and he presented to the ED for
further evaluation. He has had multiple additional episodes of coffee-ground emesis and grossly bloody stools since arrival in the ED.
Patient states that he has had previous episodes of 'bleeding ulcers' in the past - usually associated with excess Excedrin use.
He has avoided Excedrin since and now take Tylenol mostly for pain. He does report occasional doses of Aleve if the Tylenol does not work - but not regularly.
He denies smoking or alcohol use.
He does not see a physician regularly and takes no daily prescriptions meds.
A/P:
# SIRS (tachycardia/increased RR/hypotension) 2/2 GI Bleeding
#Coffee-ground emesis
#Brisk upper GI bleed
#Ischemic colitis
#Elevated lactate
#Nausea/vomiting
#Abdominal pain
-� Duodenal ulcer with NBVV status post epi/BiCap/Hemospray on 11/27
-Transfused 1u 11/28 post EGD
� Trend CBC
� S/p IV PPI drip for 72 hours - now switch to IV PPI BID; Can transition to PPI 40 mg BiD for 8 weeks and once daily indefinitely given severity of UGIB after discharge
- repeat CT imaging with no obvious acute abnormality;
� repeat EGD in 8-12 weeks as an outpatient
- also need an eventual colonoscopy
� Continue IV Zosyn given concern for ischemic colitis along with ?UTI - 10 day course appropriate DC on Cipro and Flagyl for additional 7 days
-Strict avoidance NSAIDS
� Toleraring LRD, hgb remains stable; BMs black occasionally - more than likely old blood
#Elevated lactate
� Secondary to GI bleed
� Normalized
#Leukocytosis
� Most likely reactive with acute GI bleed versus infection although less likely
-resolved
#UTI
� Follow-up cultures: Pseudomonas aeruginosa
� only 30K CFU although with elevated lactate - will tx
� Continue antibiotics - dc on cipro x 7 more days to complete 10 day course
# NEETA
-resolved with resuscitation
-most likely pre-renal
-BUN elevation likely combination of prerenal azotemia and GI bleeding.
# Anion Gap Metabolic Acidosis, resolved
# Lactic acidosis , resolved
s/p bicarb ggt, dced
-? intestinal ischemia resulting in crampy pain / GI bleeding.
-Non-contrast CT done in the ED without overt evidence of bowel abnormality. Follow formal report
-Pt c/o mild abdominal tenderness, but on exam, soft and no guarding
-Lactate resolved
#Significantly enlarged prostate gland
-f/u urology outpatient
-add tamsulosin
#PACs
-holter outpatient
DVT Prophylaxis: SCDs
Code Status: Full
More than 30 minutes spent in discharge including
Final examination of the patient
Summarizing hospital stay
Instructions for continuing care to all relevant caregivers
Preparation of discharge records, prescriptions, and referral forms
Total time spent (in minutes): 37
Anticipated Discharge: Today
Subjective/Interval History
-
Date of Service: December 02, 2024
Tolerating low residue diet, able to remain stable. Has some darker stools although no brisk bleeding
Objective Data
-
Labs:
Laboratory Results
12/02/24
04:40
WBC 7.9
Hgb 8.8 L
Hct 26.5 L
Plt Count 242
Sodium 137
Potassium 4.0
Chloride 109 H
Carbon Dioxide 22
BUN 13
Creatinine 1.0
Glucose 97
Calcium 8.8
Total Bilirubin 0.7
AST 45
ALT 24
Alkaline Phosphatase 49
Vital Signs:
Vital Signs
Temp Pulse Resp BP Pulse Ox
99.4 F 101 18 102/58 95
12/02/24 11:27 12/02/24 11:27 12/02/24 11:27 12/02/24 11:27 12/02/24 11:27
I&O
12/01/24 12/02/24 12/03/24
06:59 06:59 06:59
Intake Total 650 / 650 340 / 340
Output Total 1325 / 1325 1275 / 1275
Balance -675 / -675 -935 / -935
Review of Systems
-
History Source: Patient
All other systems: Not reviewed unless documented
Physical Exam
-
General: Well Developed, Well Nourished, Comfortable, Conversant and Appears Chronically Ill
HEENT: Normocephalic, Atraumatic, Nose Appears Normal and Ears Appear Normal
Respiratory: Clear to Auscultation and Non Labored Respirations; Negative Accessory Resp Muscle Use
Cardiac: Regular Rhythm and S1/S2
GI: Soft, Nontender, Nondistended and Other
Skin: Warm and Dry
Neuro: Awake and Alert
Psych: Calm and Intact Judgement/Insight (somewhat)
Data Reviewed
-
Diagnostic Radiology: Report Reviewed by me
CT Scan: Report Reviewed by me
Labs: Labs Reviewed by me
--- NOTE | 2024-12-02 12:37 | W.DS.TRANS ---
DC Summary - [employer]
-
Discharge Instructions:
Discharge Diagnosis/Procedures #Coffee-ground emesis
#Brisk upper GI bleed
#UTI
Diet Low Residue
Blood Work cbc and cmp in 1 week with pcp
Others Tests Holter monitor outpatient, defer to PCPs/
cardiology
Instructions:
Stand-Alone Forms:
Changes to Home Medications: Yes
Discharge Medications:
DC Medications w/original date entered in [facility]
ciprofloxacin HCl 500 mg tablet 500 mg PO Q12H 7 days #14 tabs 12/02/24
metronidazole 500 mg tablet 500 mg PO BID 7 days #14 tabs 12/02/24
pantoprazole 40 mg tablet,delayed release 40 mg PO Q12H 8 weeks #112 tabs 12/02/24
tamsulosin 0.4 mg capsule 0.4 mg PO HS 30 days #30 caps 12/02/24
Home Medication Changes
ciprofloxacin HCl 500 mg tablet 500 mg PO Q12H 7 days #14 tabs 12/02/24
metronidazole 500 mg tablet 500 mg PO BID 7 days #14 tabs 12/02/24
pantoprazole 40 mg tablet,delayed release 40 mg PO Q12H 8 weeks #112 tabs 12/02/24
tamsulosin 0.4 mg capsule 0.4 mg PO HS 30 days #30 caps 12/02/24
Pending Results: No
== END 2024-12-02 14:37 | disposition home or self-care (01) | DRG 377 ==
LOC: 4 EAST ACU 05:14
PROVIDERS: Nurse Practitioner Family; ADMITTING PHYSICIAN Hospitalist; ATTENDING PHYSICIAN Internal Medicine; CONSULT PHYSICIAN Internal Medicine Critical Care Medicine; CONSULT PHYSICIAN Student in an Organized Health Care Education/Training Program; EMERGENCY PHYSICIAN Emergency Medicine
PROC: 30233N1 Transfusion of Nonautologous Red Blood Cells into Peripheral Vein, Percutaneous Approach (ICD-10-PCS; 2024-11-27)
PROC: 0D598ZZ Destruction of Duodenum, Via Natural or Artificial Opening Endoscopic (ICD-10-PCS; 2024-11-27)
PROC: 0DC98ZZ Extirpation of Matter from Duodenum, Via Natural or Artificial Opening Endoscopic (ICD-10-PCS; 2024-11-27)
PROC: 0W3P8ZZ Control Bleeding in Gastrointestinal Tract, Via Natural or Artificial Opening Endoscopic (ICD-10-PCS; 2024-11-27)
PROC: XW0G886 Introduction of Mineral-based Topical Hemostatic Agent into Upper GI, Via Natural or Artificial Opening Endoscopic, New Technology Group 6 (ICD-10-PCS; 2024-11-27)
DX: K26.4 Chronic or unspecified duodenal ulcer with hemorrhage (principal); R57.8 Other shock; D62 Acute posthemorrhagic anemia; N39.0 Urinary tract infection, site not specified; R65.10 Systemic inflammatory response syndrome (SIRS) of non-infectious origin without acute organ dysfunction; E87.20 Acidosis, unspecified; N17.9 Acute kidney failure, unspecified; K21.00 Gastro-esophageal reflux disease with esophagitis, without bleeding; L89.211 Pressure ulcer of right hip, stage 1; E86.1 Hypovolemia; D75.839 Thrombocytosis, unspecified; K29.70 Gastritis, unspecified, without bleeding; K40.90 Unilateral inguinal hernia, without obstruction or gangrene, not specified as recurrent; K44.9 Diaphragmatic hernia without obstruction or gangrene; Z59.86 Financial insecurity
CPT/HCPCS: 71045; 74176; 74177; 80048; 80053; 81003; 81015; 82010; 82805; 82962; 83036; 83605; 83690; 83735; 84100; 84443; 85014; 85018; 85025; 85027; 85610; 85730; 86850; 86900; 86901; 86920; 87040; 87077; 87086; 87186; 87641; 93005; 96374; 96375; 97116; 97163; 97167; 97530; 99291; P9016; P9058; Q9967